=== PATIENT | female | born 1945 | race Caucasian/White ===

== ENCOUNTER 2016-09-14 20:37 | Emergency (ER) | payer MEDICARE, MEDICAID ==
[2016-09-14] MEDS ORDERED: IPRATROPIUM/ALBUTEROL 0.5-2.5 MG/3 ML AMPUL NEB ONE (20:41)
[2016-09-14] MEDS ORDERED: METHYLPREDNISOLONE INJ 125 MG/2 ML SDV IV ONE (20:41)
[2016-09-14] MEDS ORDERED: ALBUTEROL SULFATE 0.083% NEB 2.5 MG/3 ML AMPUL NEB SCH (20:56)
--- NOTE | 2016-09-14 20:59 | ER Document Report ---
ED Respiratory Problem - General Chief Complaint: Breathing Difficulty Stated Complaint: SHORTNESS OF BREATH Time Seen by Provider: 09/14/16 20:57 Mode of Arrival: Ambulatory Information source: Patient Notes: 71 yo copd female from [place] is c/o shortness of breath with increased cough and mucous. Usual oxygen 3 lpm NC, sent from the residential. - Related Data Allergies/Adverse Reactions: Penicillins Allergy (Verified 09/14/16 21:23) Past Medical History - General Information source: Patient - Social History Smoking Status: Former Smoker Frequency of alcohol use: None Drug Abuse: None Lives with: [facility] Family History: None Pulmonary Medical History: Reports: Hx COPD, Hx Pneumonia Endocrine Medical History: Denies: Hx Diabetes Mellitus Type 1, Hx Diabetes Mellitus Type 2 Surgical Hx: Negative Review of Systems - Review of Systems Constitutional: No symptoms reported EENT: See HPI Cardiovascular: No symptoms reported Respiratory: See HPI Gastrointestinal: No symptoms reported Genitourinary: No symptoms reported Female Genitourinary: No symptoms reported Musculoskeletal: No symptoms reported Skin: No symptoms reported Hematologic/Lymphatic: No symptoms reported Neurological/Psychological: No symptoms reported Physical Exam - Vital signs Vitals: Temp Pulse Resp BP Pulse Ox 98.4 F 101 H 20 106/62 96 09/14/16 20:43 09/14/16 20:43 09/14/16 20:43 09/14/16 20:43 09/14/16 20:43 Interpretation: Normal - General General appearance: Appears well, Alert - HEENT Head: Normocephalic, Atraumatic Eyes: Normal Conjunctiva: Normal Pupils: PERRL Tympanic membrane: Normal Mouth/Lips: Normal Mucous membranes: Normal Pharynx: Normal Neck: Supple. No: Lymphadenopathy - Respiratory Respiratory status: No respiratory distress Chest status: Nontender Breath sounds: Normal, Rhonchi - course upper bronchaial. No: Rales, Wheezing Chest palpation: Normal - Cardiovascular Rhythm: Regular Heart sounds: Normal auscultation Murmur: No - Abdominal Inspection: Normal Distension: No distension Bowel sounds: Normal Tenderness: Nontender. No: Tender Organomegaly: No organomegaly - Back Back: Normal, Nontender. No: Tender - Extremities General upper extremity: Normal inspection, Nontender, Normal color, Normal ROM , Normal temperature General lower extremity: Normal inspection, Nontender, Normal color, Normal ROM , Normal temperature, Normal weight bearing. No: Catina's sign - Neurological Neuro grossly intact: Yes Cognition: Normal Orientation: AAOx4 [place] Coma Scale Eye Opening: Spontaneous [place] Coma Scale Verbal: Oriented Juan David Coma Scale Motor: Obeys Commands [place] Coma Scale Total: 15 Speech: Normal Motor strength normal: LUE, RUE, LLE, RLE Sensory: Normal - Psychological Associated symptoms: Normal affect, Normal mood - Skin Skin Temperature: Warm Skin Moisture: Dry Skin Color: Normal Skin irregularity: negative: Rash Course - Re-evaluation Re-evalutation: 09/15/16 00:[address] palomino since pt feels better, she can return to [facility], start on azithromycin, Pt does feel better, vitals are stable. pulse ox 95-96 on her normal 3lpm NC. EKG evaluated by dr. palomino and dr. torres, DT with some PAC no ekg to compare it to 09/15/16 00:44 - Vital Signs Vital signs: Temp Pulse Resp BP Pulse Ox 98.4 F 101 H 19 125/66 93 09/14/16 20:43 09/14/16 20:43 09/15/16 01:01 09/15/16 01:00 09/15/16 01:01 - Laboratory Result Diagrams: 09/14/16 20:55 09/14/16 20:55 Laboratory results interpreted by me: 09/14/16 09/14/16 09/14/16 20:55 20:55 22:36 WBC 13.1 H Hgb 10.7 L Hct 33.8 L MCHC 31.7 L RDW 18.8 H Metamyelocytes % 1 H Absolute Eos (Manual) 0.7 H Sodium 136.8 L Potassium 5.3 H Chloride 97 L BUN 36 H Est GFR (Non-Af Amer) 55 L Glucose 115 H Ur Leukocyte Esterase TRACE H Discharge - Discharge Clinical Impression: COPD (chronic obstructive pulmonary disease) with acute bronchitis Condition: Good Disposition: HOME, SELF-CARE Instructions: Azithromycin ([facility]), Inhaled Bronchodilators ([facility]), Steroid Medication, Chronic Obstructive Lung Disease ([facility]), Bronchitis With Bronchospasm (Wheezing) ([facility]) Additional Instructions: to er if worse return to [facility] use inhaled bronchodilators to help get rid of the mucous drink plenty of fluids Prescriptions: Albuterol Sulfate [Ventolin 0.083% Neb 2.5 mg/3 mL Ampul] 2.5 mg NEB Q3HP PRN # 25 vial PRN Reason: Albuterol Sulfate [Proair HFA Inhalation Aerosol 8.5 gm MDI] 2 puff IH Q3HP PRN #1 hfa.aer.ad PRN Reason: Azithromycin [Zithromax] 250 mg PO DAILY #4 tablet Nebulizer [Nebulizer Machine] 1 each MC ASDIR PRN #1 kit PRN Reason: Prednisone [Deltasone 20 mg Tablet] 60 mg PO DAILY #12 tablet Referrals: SURY CRUZ MD [Primary Care Provider] - Follow up tomorrow
--- NOTE | 2016-09-14 21:12 | EKG REPORT ---
SEVERITY:- ABNORMAL ECG - SINUS TACHYCARDIA MULTIPLE ATRIAL PREMATURE COMPLEXES FIRST DEGREE AV BLOCK CONSIDER RIGHT VENTRICULAR HYPERTROPHY INFERIOR INFARCT, AGE INDETERMINATE : Confirmed by: Leanne Wood 14-Sep-2016 21:11:34
[2016-09-14 21:15] LABS: HEMATOCRIT 33.8 % (36.0-47.0); HEMOGLOBIN 10.7 g/dL (12.0-15.5); HGB HCT DIFFERENCE -1.7; MEAN CORPUSCULAR HEMOGLOBIN 28.2 pg (27.0-33.4); MEAN CORPUSCULAR HGB CONC 31.7 g/dL (32.0-36.0); MEAN CORPUSCULAR VOLUME 89 fl (80-97); RED CELL DISTRIBUTION WIDTH 18.8 % (11.5-14.0); WHITE BLOOD COUNT 13.1 10^3/uL (4.0-10.5)
[2016-09-14] MEDS ORDERED: ALBUTEROL SULFATE 0.083% NEB 2.5 MG/3 ML AMPUL NEB ONE (21:24)
[2016-09-14 21:27] LABS: BAND NEUTROPHILS % (MANUAL) 4 % (3-5); BASOPHILS % (MANUAL) 1 % (0-2); EOSINOPHILS % (MANUAL) 5 % (0-6); LYMPHOCYTES % (MANUAL) 25 % (13-45); TOTAL CELLS COUNTED 100
[2016-09-14 21:29] LABS: ALANINE AMINOTRANSFERASE 19 U/L (9-52); ALBUMIN 3.6 g/dL (3.5-5.0); ALKALINE PHOSPHATASE 105 U/L (38-126); ANION GAP 11 (5-19); ASPARTATE AMINO TRANSFERASE 18 U/L (14-36); BILIRUBIN,DIRECT 0.3 mg/dL (0.0-0.4); BILIRUBIN,TOTAL 0.4 mg/dL (0.2-1.3); BLOOD UREA NITROGEN 36 mg/dL (7-20); CALCIUM 9.3 mg/dL (8.4-10.2); CARBON DIOXIDE 29 mmol/L (22-30); CHLORIDE 97 mmol/L (98-107); CREATINE KINASE 34 U/L (30-135); CREATININE RESULT 0.99 mg/dL (0.52-1.25); GLUCOSE 115 mg/dL (75-110); POTASSIUM 5.3 mmol/L (3.6-5.0); SODIUM 136.8 mmol/L (137-145); TOTAL PROTEIN 6.8 g/dL (6.3-8.2)
[2016-09-14 21:31] LABS: ANISOCYTOSIS 2+; OVALOCYTES SLIGHT; PLATELET CLUMPS PRESENT; POIKILOCYTOSIS SLIGHT; POLYCHROMASIA SLIGHT; TARGET CELLS SLIGHT; TOXIC GRANULATION SLIGHT
[2016-09-14 21:35] LABS: CREATINE KINASE MB 2.11 ng/mL (<4.55); TROPONIN I < 0.012 ng/mL
--- NOTE | 2016-09-14 21:39 | RADIOLOGY REPORT (SQ) ---
EXAM DESCRIPTION: CHEST SINGLE VIEW COMPLETED DATE/TIME: 09/14/2016 9:09 pm REASON FOR STUDY: sob COMPARISON: None. EXAM PARAMETERS: NUMBER OF VIEWS: One view. TECHNIQUE: Single frontal radiographic view of the chest acquired. RADIATION DOSE: NA LIMITATIONS: None. FINDINGS: LUNGS AND PLEURA: No opacities, masses or pneumothorax. No pleural effusion. Chronic appe aring changes are identified. MEDIASTINUM AND HILAR STRUCTURES: No masses. Contour normal. HEART AND VASCULAR STRUCTURES: Heart normal in size. Normal vasculature. BONES: No acute findings. HARDWARE: Surgical clips are identified projected over both kamron thoraces. OTHER: No other significant finding. IMPRESSION: NO ACUTE RADIOGRAPHIC FINDING IN THE CHEST. TECHNICAL DOCUMENTATION: JOB ID: [id number]
[2016-09-14 22:57] LABS: APPEARANCE,URINE CLEAR; BILIRUBIN,URINE NEGATIVE (NEGATIVE); GLUCOSE, URINE NEGATIVE (NEGATIVE); KETONES,URINE NEGATIVE (NEGATIVE); LEUKOCYTE ESTERASE,URINE TRACE (NEGATIVE); NITRITE,URINE NEGATIVE (NEGATIVE); PROTEIN,URINE NEGATIVE (NEGATIVE); URINE SPECIFIC GRAVITY 1.004; UROBILINOGEN,URINE NEGATIVE mg/dL (<2.0)
[2016-09-14] MEDS ORDERED: OXYCODONE-ACETAMINOPHEN 5-325 MG TABLET PO ONE (23:15)
[2016-09-15] MEDS ORDERED: AZITHROMYCIN 250 MG TABLET PO ONE (00:38)
[2016-09-15 01:41] VITALS: BP 125/66
== END 2016-09-15 01:30 | disposition home or self-care (01) ==
LOC: ER 20:37
DX: J44.0 Chronic obstructive pulmonary disease with (acute) lower respiratory infection (principal); J20.9 Acute bronchitis, unspecified; I49.1 Atrial premature depolarization; R06.02 Shortness of breath; R05 Cough; Z88.0 Allergy status to penicillin; Z99.81 Dependence on supplemental oxygen
CPT/HCPCS: 93005; 94640 ×2; 99285; 51701; 96374; 36415; 87070; 87205; 82553; 82550; 85025; 87077; 80053; 81001; 84484; 87186; 83880; 71010; 93010; A9270 ×4; J2930; J7620

== ENCOUNTER 2016-09-25 16:50 | Inpatient (IN) | payer MEDICARE, MEDICAID ==
[2016-09-25] MEDS ORDERED: ONDANSETRON HCL INJ/PF 4 MG/2 ML SDV IV ONE (17:42)
[2016-09-25] MEDS ORDERED: MORPHINE SULFATE 10 MG/ML INJ IV ONE ×2 (17:42→20:49)
[2016-09-25 17:49] LABS: PROTHROMBIN TIME 13.3 SEC (11.4-15.4)
--- NOTE | 2016-09-25 17:51 | ER Document Report ---
ED General - General Chief Complaint: Headache Stated Complaint: HEADACHE Time Seen by Provider: 09/25/16 17:31 Mode of Arrival: Ambulatory Information source: Patient Notes: 71-year-old female with a history of cancer, COPD, sepsis and chronic kidney disease. Patient presented to the ER 2 days ago with productive cough this of breath. The patient was noted to have a mildly elevated WBC at that time. Patient presents today with a headache and back pain. Denies any abdominal pain. She has a continued cough. She states she always has back pain. Patient reports having a PET scan last month which showed no spread of the cancer. - HPI Onset: Just prior to arrival Onset/Duration: Gradual Quality of pain: Dull Severity: Moderate Pain Level: 2 Associated symptoms: Productive cough, Shortness of breath - Shortness of breath chronic. denies: Chills, Fever Exacerbated by: Movement Relieved by: Denies Similar symptoms previously: Yes Recently seen / treated by doctor: Yes - Related Data Allergies/Adverse Reactions: Penicillins Allergy (Verified 09/14/16 21:23) Past Medical History - General Information source: Patient - Social History Smoking Status: Former Smoker Cigarette use (# per day): No Chew tobacco use (# tins/day): No Frequency of alcohol use: None Drug Abuse: None Lives with: [facility]illed [facility] Family History: None Patient has suicidal ideation: No Patient has homicidal ideation: No - Past Medical History Cardiac Medical History: Reports: Hx Hypertension Pulmonary Medical History: Reports: Hx COPD, Hx Pneumonia, Other - Cancer Neurological Medical History: Reports: None Endocrine Medical History: Denies: Hx Diabetes Mellitus Type 1, Hx Diabetes Mellitus Type 2 Renal/ Medical History: Reports: None Malignancy Medical History: Reports: None GI Medical History: Reports: Hx Gastroesophageal Reflux Disease Musculoskeltal Medical History: Reports None Skin Medical History: Reports None Psychiatric Medical History: Reports: None Traumatic Medical History: Reports: None Infectious Medical History: Reports: None Surgical Hx: Other - Tributary Review of Systems - Review of Systems Constitutional: denies: Chills, Fever EENT: No symptoms reported Cardiovascular: No symptoms reported Respiratory: Cough Gastrointestinal: No symptoms reported Genitourinary: No symptoms reported Female Genitourinary: No symptoms reported Musculoskeletal: No symptoms reported Skin: No symptoms reported Hematologic/Lymphatic: No symptoms reported Neurological/Psychological: See HPI Physical Exam - Vital signs Vitals: Temp Pulse BP Pulse Ox 97.3 F 82 105/56 L 92 09/25/16 17:04 09/25/16 17:04 09/25/16 17:04 09/25/16 17:04 Notes: Physical exam: GENERAL: 1-year-old female, alert and oriented 3, complains of back pain and headache HEAD: Atraumatic, normocephalic. EYES: Pupils equal round and reactive to light, extraocular movements intact, sclera anicteric, conjunctiva are normal. ENT: oropharynx clear without exudates. Moist mucous membranes. NECK: Normal range of motion, supple LUNGS: rhonchi With wheezes HEART: Regular rate and rhythm without murmurs, rubs or gallops. ABDOMEN: Soft, normoactive bowel sounds. No tenderness to palpation. No guarding, no rebound. No masses appreciated. EXTREMITIES: Normal range of motion, no pitting or edema. No clubbing or cyanosis. NEUROLOGICAL: Cranial nerves II through XII grossly intact. Normal speech, does complain of a headache. She does not have any photophobia. As mentioned above, her neck is supple PSYCH: Normal mood, normal affect. SKIN: Warm, Dry, normal turgor, no rashes or lesions noted. Course - Re-evaluation Re-evalutation: 09/25/16 23:17 Patient was noted to have a significant leukocytosis with a left shift. It is not clear from the primary records if she still on steroids. The urine analysis showed pyuria, hematuria and bacteriuria. Chest x-ray showed no obvious infiltrate. Patient did have an MRI of the brain (which is the reason she was sent in for) which showed no bleed or mass-effect. Patient does have an increased BUN and creatinine suggestive of acute kidney injury and her blood pressure has been labile. Her lactic acid is normal. Discussed the case with Dr. Holley. Given the leukocytosis and the complaints of headache, I did attempt a spinal tap but was unsuccessful in obtaining spinal fluid. Will be to continue the IV fluids, add IV steroids (stress dose), IV antibiotics and closely. She has gotten meningitic doses of antibiotics at this point. If the headache continues, fluoroscopic LP could be considered tomorrow when radiology is available. - Vital Signs Vital signs: Temp Pulse Resp BP Pulse Ox 97.3 F 82 11 L 80/53 L 98 09/25/16 17:04 09/25/16 17:04 09/25/16 22:15 09/25/16 22:15 09/25/16 22:15 - Laboratory Result Diagrams: 09/25/16 17:29 09/25/16 17:29 Laboratory results interpreted by me: 09/25/16 09/25/16 09/25/16 17:29 17:29 19:30 WBC 19.5 H RBC 3.59 L Hgb 10.3 L Hct 32.0 L RDW 17.9 H Absolute Neutrophils 13.5 H Absolute Monocytes 2.2 H Potassium 5.4 H BUN 47 H Creatinine 1.26 H Est GFR ( Amer) 50 L Est GFR (Non-Af Amer) 42 L AST 56 H Albumin 3.3 L Urine Protein 100 H Urine Blood SMALL H Urine Nitrite POSITIVE H Ur Leukocyte Esterase LARGE H - Diagnostic Test Radiology reviewed: Image reviewed, Reports reviewed - MRI of the brain shows no mass-effect Critical Care Note - Critical Care Note Total time excluding time spent on procedures (mins): 90 Discharge - Discharge Clinical Impression: UTI, Sirs, Acute Kidney injury Condition: Serious Disposition: ADMITTED INPATIENT Admitting Provider: Estelle Holley is covering Unit Admitted: [facility]
[2016-09-25 17:53] LABS: ABSOLUTE BASOPHILS # (AUTO) 0.2 10^3/uL (0.0-0.2); ABSOLUTE EOSINOPHILS # (AUTO) 0.1 10^3/uL (0.0-0.6); ABSOLUTE LYMPHOCYTES (AUTO) 3.4 10^3/uL (0.5-4.7); ABSOLUTE MONOCYTES (AUTO) 2.2 10^3/uL (0.1-1.4); ABSOLUTE NEUT (AUTO) 13.5 10^3/uL (1.7-8.2); BASOPHILS % (AUTO) 1.3 % (0-2); EOSINOPHILS % (AUTO) 0.7 % (0-6); HEMOGLOBIN 10.3 g/dL (12.0-15.5); HGB HCT DIFFERENCE -1.1; LYMPHOCYTES % (AUTO) 17.4 % (13-45); MEAN CORPUSCULAR HEMOGLOBIN 28.6 pg (27.0-33.4); MEAN CORPUSCULAR HGB CONC 32.1 g/dL (32.0-36.0); MEAN CORPUSCULAR VOLUME 89 fl (80-97); MONOCYTES % (AUTO) 11.4 % (3-13); RED BLOOD COUNT 3.59 10^6/uL (3.72-5.28); RED CELL DISTRIBUTION WIDTH 17.9 % (11.5-14.0); SEGMENTED NEUTROPHILS % (AUTO) 69.2 % (42-78); WHITE BLOOD COUNT 19.5 10^3/uL (4.0-10.5)
[2016-09-25 18:02] LABS: ALANINE AMINOTRANSFERASE 33 U/L (9-52); ALBUMIN 3.3 g/dL (3.5-5.0); ALKALINE PHOSPHATASE 109 U/L (38-126); ANION GAP 8 (5-19); ASPARTATE AMINO TRANSFERASE 56 U/L (14-36); BILIRUBIN,DIRECT 0.4 mg/dL (0.0-0.4); BILIRUBIN,TOTAL 0.4 mg/dL (0.2-1.3); BLOOD UREA NITROGEN 47 mg/dL (7-20); CARBON DIOXIDE 28 mmol/L (22-30); CHLORIDE 103 mmol/L (98-107); CREATININE RESULT 1.26 mg/dL (0.52-1.25); GLUCOSE 81 mg/dL (75-110); POTASSIUM 5.4 mmol/L (3.6-5.0); TOTAL PROTEIN 6.5 g/dL (6.3-8.2)
--- NOTE | 2016-09-25 18:21 | RADIOLOGY REPORT (SQ) ---
EXAM DESCRIPTION: CT HEAD WITHOUT COMPLETED DATE/TIME: 09/25/2016 6:01 pm REASON FOR STUDY: headache, lung cancer COMPARISON: None. TECHNIQUE: Axial images acquired through the brain without intravenous contrast. Images reviewed wi th bone, brain and subdural windows. Images stored on PACS. All CT scanners at this facility use dose modulation, iterative reconstruction, and/or weight based d osing when appropriate to reduce radiation dose to as low as reasonably achievable (ALARA). [facility]: Dose Right [facility]: CareDose [facility]: Dose Right [facility]: Teradose 4D [facility]: Smove RADIATION DOSE: 131.66 mGy. LIMITATIONS: None. FINDINGS: VENTRICLES: Prominent. CEREBRUM: No masses. No hemorrhage. No midline shift. Areas of low density in the white matter mos t likely due to chronic micro-vascular ischemic change. No evidence for acute infarction. CEREBELLUM: No masses. No hemorrhage. No alteration of density. No evidence for acute infarction. EXTRAAXIAL SPACES: Mild age-related involutional change. No fluid collections. No masses. ORBITS AND GLOBE: No intra- or extraconal masses. Normal contour of globe without masses. CALVARIUM: No fracture. PARANASAL SINUSES: No fluid or mucosal thickening. SOFT TISSUES: No mass or hematoma. OTHER: No other significant finding. IMPRESSION: MILD CHRONIC CHANGES OF ATROPHY AND MICROVASCULAR ISCHEMIA. NO ACUTE PROCESS. TECHNICAL DOCUMENTATION: JOB ID: [id number] Quality ID # [id number]: Final reports with documentation of one or more dose reduction techniques (e.g., Au tomated exposure control, adjustment of the mA and/or kV according to patient size, use of iterative reconstruction technique) 2010 [employer]- All Rights Reserved
[2016-09-25] MEDS ORDERED: MORPHINE SULFATE 10 MG/ML INJ ONE (18:32)
--- NOTE | 2016-09-25 19:11 | RADIOLOGY REPORT (SQ) ---
EXAM DESCRIPTION: CHEST SINGLE VIEW COMPLETED DATE/TIME: 09/25/2016 6:54 pm REASON FOR STUDY: cough COMPARISON: 09/14/2016 EXAM PARAMETERS: NUMBER OF VIEWS: One view. TECHNIQUE: Single frontal radiographic view of the chest acquired. RADIATION DOSE: NA LIMITATIONS: None. FINDINGS: LUNGS AND PLEURA: No acute opacities, masses or pneumothorax. No pleural effusion. MEDIASTINUM AND HILAR STRUCTURES: Stable. HEART AND VASCULAR STRUCTURES: Stable. BONES: No acute findings. HARDWARE: Bilateral surgical clips. Prior kyphoplasty. OTHER: No other significant finding. IMPRESSION: NO ACUTE RADIOGRAPHIC FINDING IN THE CHEST. TECHNICAL DOCUMENTATION: JOB ID: [id number]
[2016-09-25] MEDS ORDERED: NORMAL SALINE 500 ML IV PRN ×2 (19:43→22:25)
[2016-09-25 19:55] LABS: APPEARANCE,URINE CLOUDY; BILIRUBIN,URINE NEGATIVE (NEGATIVE); GLUCOSE, URINE NEGATIVE (NEGATIVE); KETONES,URINE NEGATIVE (NEGATIVE); LEUKOCYTE ESTERASE,URINE LARGE (NEGATIVE); NITRITE,URINE POSITIVE (NEGATIVE); PROTEIN,URINE 100 mg/dL (NEGATIVE); URINE SPECIFIC GRAVITY 1.009; UROBILINOGEN,URINE NEGATIVE mg/dL (<2.0)
[2016-09-25] MEDS ORDERED: CEFTRIAXONE 2 GM/D5W RTU 50 ML IV ONE (20:39)
--- NOTE | 2016-09-25 21:57 | RADIOLOGY REPORT (SQ) ---
EXAM DESCRIPTION: MRI HEAD COMBO COMPLETED DATE/TIME: 09/25/2016 9:42 pm REASON FOR STUDY: headache COMPARISON: None. TECHNIQUE: Multiplanar imaging includes non-contrasted T1, T2, FLAIR, and Diffusion with ADC map seq uences. Images stored on PACS. LIMITATIONS: None. FINDINGS: ANATOMY: No anomalies. Normal vascular flow voids. Pituitary fossa normal. CSF SPACES: Normal in size and contour. No hemorrhage. CEREBRUM: Scattered high-signal intensity lesions scattered throughout the white matter on FLAIR imag ing with distribution suggesting chronic micro-vascular ischemic change. Sulci and gyri normal in si ze and contour. No evidence of hemorrhage, mass or extraaxial fluid collection. POSTERIOR FOSSA: No signal alteration. No hemorrhage. No edema, masses or mass effect. Internal cary tory canals, cerebello-pontine angles, mastoids normal. DIFFUSION: Negative for acute or sub-acute infarction. ORBITS: No masses. Globes normal. PARANASAL SINUSES: No fluid levels. Mucosa normal. OTHER: No other significant finding. IMPRESSION: Negative for acute or sub-acute infarction.Age-related MICROVASCULAR ISCHEMIC CHANGE. TECHNICAL DOCUMENTATION: JOB ID: [id number]- All Rights Reserved
[2016-09-25] MEDS ORDERED: LIDOCAINE 1% INJ-PF (10 MG/ML) 30 ML SDV INJ ONE (22:26)
[2016-09-25] MEDS ORDERED: VANCOMYCIN HCL INJ 1000 MG VIAL IV ONE (23:02)
[2016-09-25] MEDS ORDERED: NORMAL SALINE 1000 ML 1,000 ML IV PRN ×2 (23:10→23:13)
[2016-09-25] MEDS ORDERED: ACETAMINOPHEN 325 MG TABLET PO PRN (23:13)
[2016-09-25] MEDS ORDERED: ONDANSETRON HCL INJ/PF 4 MG/2 ML SDV IV PRN (23:13)
[2016-09-25] MEDS ORDERED: METHYLPREDNISOLONE INJ 40 MG/1 ML SDV IV ONE (23:26)
[2016-09-25] MEDS ORDERED: VANCOMYCIN HCL 0 MG in DEXTROSE 5%-WATER 250 ML IV NR (23:30)
[2016-09-25] MEDS ORDERED: IPRATROPIUM/ALBUTEROL 0.5-2.5 MG/3 ML AMPUL NEB ONE (23:45)
[2016-09-25] MEDS ORDERED: LEVOFLOXACIN 500 MG/D5W RTU 100 ML IV SCH (23:45)
[2016-09-26] MEDS ORDERED: LEVOFLOXACIN 500 MG/D5W RTU 500 MG/100 ML RTUPB IV ONE
[2016-09-26] MEDS: IPRATROPIUM/ALBUTEROL 0.5-2.5 MG/3 ML AMPUL NEB SCH ×4 (02:01→20:39)
[2016-09-26 07:06] LABS: ABSOLUTE BASOPHILS # (AUTO) 0.1 10^3/uL (0.0-0.2); ABSOLUTE LYMPHOCYTES (AUTO) 0.8 10^3/uL (0.5-4.7); ABSOLUTE MONOCYTES (AUTO) 0.1 10^3/uL (0.1-1.4); ABSOLUTE NEUT (AUTO) 15.5 10^3/uL (1.7-8.2); BASOPHILS % (AUTO) 0.6 % (0-2); EOSINOPHILS % (AUTO) 0.2 % (0-6); HEMATOCRIT 33.5 % (36.0-47.0); HEMOGLOBIN 10.5 g/dL (12.0-15.5); LYMPHOCYTES % (AUTO) 5.1 % (13-45); MEAN CORPUSCULAR HEMOGLOBIN 28.3 pg (27.0-33.4); MEAN CORPUSCULAR HGB CONC 31.4 g/dL (32.0-36.0); MEAN CORPUSCULAR VOLUME 90 fl (80-97); MONOCYTES % (AUTO) 0.8 % (3-13); RED CELL DISTRIBUTION WIDTH 17.7 % (11.5-14.0); SEGMENTED NEUTROPHILS % (AUTO) 93.3 % (42-78); WHITE BLOOD COUNT 16.6 10^3/uL (4.0-10.5)
[2016-09-26 07:19] LABS: ALANINE AMINOTRANSFERASE 24 U/L (9-52); ALBUMIN 3.4 g/dL (3.5-5.0); ALKALINE PHOSPHATASE 100 U/L (38-126); ANION GAP 8 (5-19); ASPARTATE AMINO TRANSFERASE 56 U/L (14-36); BILIRUBIN,DIRECT 0.4 mg/dL (0.0-0.4); BILIRUBIN,TOTAL 0.4 mg/dL (0.2-1.3); BLOOD UREA NITROGEN 42 mg/dL (7-20); CALCIUM 8.7 mg/dL (8.4-10.2); CARBON DIOXIDE 25 mmol/L (22-30); CHLORIDE 105 mmol/L (98-107); CREATININE RESULT 1.22 mg/dL (0.52-1.25); GLUCOSE 130 mg/dL (75-110); SODIUM 138.2 mmol/L (137-145); TOTAL PROTEIN 7.1 g/dL (6.3-8.2)
[2016-09-26 07:25] LABS: POTASSIUM 6.3 mmol/L (3.6-5.0)
[2016-09-26] MEDS ORDERED: (PENDING PHARMACY ID) (Oxycodone Hcl/Acetaminophen [Percocet 10-325 Mg Tablet] 1 TAB) PO PRN (08:33)
[2016-09-26] MEDS ORDERED: SODIUM POLYSTYRENE SULFONATE 15 GM/60 ML ONE (08:43)
[2016-09-26] MEDS ORDERED: SODIUM POLYSTYRENE SULFONATE 15 GM/60 ML PO ONE (08:45)
[2016-09-26] MEDS ORDERED: CLONAZEPAM PO SCH (08:45)
[2016-09-26] MEDS ORDERED: CALCIUM GLUCONATE 1000 MG/10 ML INJ IV ONE (08:45)
[2016-09-26] MEDS ORDERED: PREGABALIN 75 MG CAPSULE PO SCH (08:45)
--- NOTE | 2016-09-26 08:56 | PDOC H&P ---
History of Present Illness Admission Date/PCP: 09/25/16 23:14 SURY CRUZ MD Patient complains of: Headache History of Present Illness: GEREMIAS LOPEZ is a 71 year old female This is a 71-year-old female with a history of the COPD lung cancer sepsis and chronic kidney disease present in the emergency department 2 days ago with a productive cough and shortness of the breath patient at that time was noticed some elevated WBC. Patient's present today with the headache and the back pain mostly on the thoracic spine denied any fever denied any blurry vision. Patient initial workup including the CT of the head and MRI of the head was negative for any acute finding. Patient does not have a normal fever but patient's white count was elevated but patients currently on the steroid. Patient no ongoing chronic COPD for several hospital admissions. The ER physicians tried to get the lumbar puncture which is very low suspicious for the any meningitis with the clinical pictures but unable to get it because of a lot of arthritis. Patients color with the Rocephin vancomycin and Levaquin antibiotic when I saw the patient's Patient is alert awake oriented 3. Patient's denied any headache but mostly complains of back pain which is described in the cervical spine and thoracic spine area. Patients denied any chest pain patient still complains of shortness of the breath on and off Patients recently admitting in the hospital on 08/16/16 for the pneumonia and septicemia and patient's was treated with the IV antibiotic Levaquin and vancomycin at the time. Patient's also see in [place] and the recently asked to do a PET scan done according think and was stable Patient's blood pressure was running low but other than that patients denied any other symptoms remain complaining of thoracic spine pain Past Medical History Cardiac Medical History: Reports: Hypertension Pulmonary Medical History: Reports: Bronchitis, Chronic Obstructive Pulmonary Disease (COPD), Pneumonia, Respiratory Failure, Other - Cancer Neurological Medical History: Reports: None Endocrine Medical History: Denies: Diabetes Mellitus Type 1, Diabetes Mellitus Type 2 Renal/ Medical History: Reports: None, Chronic Kidney Disease Malignancy Medical History: Reports: None, Lung Cancer GI Medical History: Reports: Gastroesophageal Reflux Disease Musculoskeltal Medical History: Reports: Arthritis Skin Medical History: Reports: None Psychiatric Medical History: Reports: None, Depression Traumatic Medical History: Reports: None Infectious Medical History: Reports: None Past Surgical History Past Surgical History: Reports: Appendectomy, Cholecystectomy, Hysterectomy, Orthopedic Surgery Social History Lives with: Prison Smoking Status: Former Smoker Frequency of Alcohol Use: None Hx Recreational Drug Use: No Hx Prescription Drug Abuse: No - Advance Directive Resuscitation Status: Full Code Family History Family History: None, Reviewed & Not Pertinent, Arthritis Parental Family History Reviewed: Yes Children Family History Reviewed: Yes Sibling(s) Family History Reviewed.: Yes Medication/Allergy Home Medications: Nebulizer [Nebulizer Machine] 1 each MC ASDIR PRN #1 kit 09/15/16 Albuterol Sulfate [Ventolin Hfa] 2 puff IH Q4HP PRN 09/26/16 Amlodipine Besylate [Norvasc 5 mg Tablet] 1 tab PO DAILY 09/26/16 Atorvastatin Calcium [Lipitor 10 mg Tablet] 1 tab PO QHS 09/26/16 Budesonide/Formoterol Fumarate [Symbicort HFA 160-4.5 mcg Inhaler 6 gm] 2 puff IH Q12H 09/26/16 Citalopram Hydrobromide [Celexa 20 mg Tablet] 1 tab PO DAILY 09/26/16 Clonazepam [Klonopin] 1 tab PO Q12H 09/26/16 Clonidine HCl 1 tab PO Q12H 09/26/16 Ergocalciferol (Vitamin D2) [Vitamin D2] 1 tab PO Q14D 09/26/16 Levocetirizine Dihydrochloride [Xyzal] 1 tab PO QHS 09/26/16 Losartan Potassium [Cozaar 100 mg Tablet] 1 tab PO DAILY 09/26/16 Mirtazapine [Remeron] 7.5 mg PO QHS 09/26/16 Omeprazole 1 tab PO DAILY 09/26/16 Oxycodone HCl/Acetaminophen [Percocet 10-325 mg Tablet] 1 tab PO Q6HP PRN Pregabalin [Lyrica 75 mg Capsule] 1 cap PO Q8H 09/26/16 Tiotropium [place] [Spiriva Handihaler 5 Cap/Kit (18 Mcg/Cap)] 1 cap IH DAILY Allergies/Adverse Reactions: Penicillins Allergy (Verified 09/14/16 21:23) Review of Systems Constitutional: PRESENT: headache(s). ABSENT: chills, fever(s), weight gain, weight loss Eyes: ABSENT: visual disturbances Ears: ABSENT: hearing changes Nose, Mouth, and Throat: PRESENT: headache(s) Cardiovascular: ABSENT: chest pain, dyspnea on exertion, edema, orthropnea, palpitations Respiratory: PRESENT: cough, dyspnea. ABSENT: hemoptysis Gastrointestinal: ABSENT: abdominal pain, constipation, diarrhea, hematemesis, hematochezia, nausea, vomiting Genitourinary: ABSENT: dysuria, hematuria Musculoskeletal: PRESENT: back pain. ABSENT: joint swelling Integumentary: ABSENT: rash, wounds Neurological: ABSENT: abnormal gait, abnormal speech, confusion, dizziness, focal weakness, syncope Psychiatric: ABSENT: anxiety, depression, homidical ideation, suicidal ideation Endocrine: ABSENT: cold intolerance, heat intolerance, menstrual abnormalities, polydipsia, polyuria Hematologic/Lymphatic: ABSENT: easy bleeding, easy bruising, lymphadenopathy Physical Exam Vital Signs: Temp Pulse Resp BP Pulse Ox 97.8 F 82 18 107/61 100 09/26/16 08:03 09/26/16 08:03 09/26/16 08:03 09/26/16 08:03 09/26/16 08:03 Intake & Output 09/25/16 09/26/16 09/27/16 06:59 06:59 06:59 Intake Total 1546 Output Total 400 Balance 1146 Weight 69.3 kg General appearance: PRESENT: no acute distress, well-developed, well-nourished Head exam: PRESENT: atraumatic, normocephalic Eye exam: PRESENT: conjunctiva pink, EOMI, PERRLA. ABSENT: scleral icterus Ear exam: PRESENT: normal external ear exam Mouth exam: PRESENT: moist, tongue midline Neck exam: PRESENT: full ROM. ABSENT: carotid bruit, JVD, lymphadenopathy, thyromegaly Respiratory exam: PRESENT: decreased breath sounds Cardiovascular exam: PRESENT: RRR. ABSENT: diastolic murmur, rubs, systolic murmur Pulses: PRESENT: normal dorsalis pedis pul, +2 pedal pulses bilateral Vascular exam: PRESENT: normal capillary refill GI/Abdominal exam: PRESENT: normal bowel sounds, soft. ABSENT: distended, guarding, mass, organolmegaly, rebound, tenderness Rectal exam: PRESENT: deferred Extremities exam: ABSENT: full ROM, left AKA, right AKA, left BKA, right BKA, calf tenderness, joint swelling, pedal edema, tenderness, other Musculoskeletal exam: PRESENT: ambulatory Neurological exam: PRESENT: alert, awake, oriented to person, oriented to place , oriented to time, oriented to situation, reflexes normal, CN II-XII grossly intact. ABSENT: motor sensory deficit Psychiatric exam: PRESENT: appropriate affect, normal mood. ABSENT: homicidal ideation, suicidal ideation Skin exam: PRESENT: dry, intact, warm. ABSENT: cyanosis, rash Results Laboratory Results: 09/26/16 06:50 09/26/16 06:50 09/26/16 09/26/16 09/26/16 06:50 06:50 06:50 WBC 16.6 H RBC 3.70 L Hgb 10.5 L Hct 33.5 L MCV 90 MCH 28.3 MCHC 31.4 L RDW 17.7 H Plt Count 189 Seg Neutrophils % 93.3 H Lymphocytes % 5.1 L Monocytes % 0.8 L Eosinophils % 0.2 Basophils % 0.6 Absolute Neutrophils 15.5 H Absolute Lymphocytes 0.8 Absolute Monocytes 0.1 Absolute Eosinophils 0.0 Absolute Basophils 0.1 Sodium 138.2 Potassium 6.3 H* Chloride 105 Carbon Dioxide 25 Anion Gap 8 BUN 42 H Creatinine 1.22 Est GFR ( Amer) 52 L Est GFR (Non-Af Amer) 43 L Glucose 130 H Calcium 8.7 Total Bilirubin 0.4 AST 56 H ALT 24 Alkaline Phosphatase 100 Ammonia < 8.7 L Total Protein 7.1 Albumin 3.4 L Impressions: Head CT 09/25/16 17:42 IMPRESSION: MILD CHRONIC CHANGES OF ATROPHY AND MICROVASCULAR ISCHEMIA. NO ACUTE PROCESS. Chest X-Ray 09/25/16 18:19 IMPRESSION: NO ACUTE RADIOGRAPHIC FINDING IN THE CHEST. Head MRI 09/25/16 19:44 IMPRESSION: Negative for acute or sub-acute infarction.Age-related MICROVASCULAR ISCHEMIC CHANGE. Assessment & Plan - Diagnosis (1) Sepsis Qualifiers: Sepsis type: sepsis due to unspecified organism Qualified Code(s): A41.9 - Sepsis, unspecified organism Is this a current diagnosis for this admission?: YesPlan: Most likely a possible underlying pneumonia with urinary tract infections. We will start the patient on a broad-spectrum antibiotic with the history of the MRSA in the past will continues with the vancomycin until the cultures back. Patient at this point no sign of any meningitis is very low suspicious and ER physicians tried to get the lumbar puncture but unable to get it. Patient does not have any fever but patients have a low blood pressures and with this elevated white count with a left shift will cover with all broad-spectrum antibiotic at this point (2) Shortness of breath Is this a current diagnosis for this admission?: YesPlan: With chronic COPD become continues to nebulizer treatments (3) Back pain Qualifiers: Back pain location: back pain in unspecified location Is this a current diagnosis for this admission?: YesPlan: We will get the CT of the C-spine and T-spine (4) Headache Qualifiers: Headache type: unspecified Is this a current diagnosis for this admission?: YesPlan: Patient CT head and MRI of the head is negative and clinical exams no other neurological signs and symptoms is not this most likely a musculoskeletal and tension type of the headache. (5) Pneumonia Qualifiers: Pneumonia type: due to unspecified organism Lung location: unspecified part of lung Is this a current diagnosis for this admission?: YesPlan: Continues to IV antibiotic (6) COPD (chronic obstructive pulmonary disease) Qualifiers: Chronic bronchitis type: unspecified Is this a current diagnosis for this admission?: YesPlan: Continues to current medications (7) Hypertension Qualifiers: Hypertension type: unspecified secondary hypertension Qualified Code (s): I15.9 - Secondary hypertension, unspecified; I15 - Secondary hypertension Is this a current diagnosis for this admission?: YesPlan: Currently running low possible underlying sepsis will hold all blood pressure medications (8) Lung cancer Qualifiers: Lung location: unspecified part of lung Is this a current diagnosis for this admission?: YesPlan: Currently stable (9) Acute renal failure Qualifiers: Acute renal failure type: unspecified Qualified Code(s): N17.9 - Acute kidney failure, unspecified Is this a current diagnosis for this admission?: YesPlan: Underlying chronic kidney disease will give her IV fluid and continues to monitor the patient's and cardiac the potassiums and check the magnesium also - Time Time Spent: 50 to 70 Minutes Medications reviewed and adjusted accordingly: Yes Anticipated discharge: SNF Within: Other - Inpatient Certification Medical Necessity: Need Close Monitoring Due to Risk of Patient Decompensation, Need For IV Fluids, Need for IV Antibiotics - Plan Summary Plan Summary: Patient is currently symptomatically stable will continues the broad-spectrum IV antibiotic and IV fluid and correct the potassiums. We will try to reach the daughter unable to reach it discussed with the nursing staff to try to reach again and will talk about the CODE STATUS of the patient's.
[2016-09-26] MEDS ORDERED: NORMAL SALINE 1000 ML 1,000 ML IV PRN (09:39)
[2016-09-26] MEDS: CITALOPRAM HYDROBROMIDE 20 MG TABLET PO SCH (09:43)
[2016-09-26] MEDS: FAMOTIDINE 20 MG TABLET PO SCH ×2 (09:44→22:18)
[2016-09-26] MEDS ORDERED: 1/2 NORMAL SALINE 1,000 ML IV PRN ×2 (09:54→19:57)
[2016-09-26] MEDS: BUDESONIDE/FORMOTEROL 160-4.5 MCG 60 PUFF/6 GM MDI IH SCH ×2 (09:56→22:22)
[2016-09-26] MEDS ORDERED: CITALOPRAM HYDROBROMIDE 20 MG TABLET PO SCH (10:00)
[2016-09-26] MEDS ORDERED: TIOTROPIUM BROMIDE DPI 5 CAP/KIT (18 MCG/CAP) IH SCH (10:00)
[2016-09-26] MEDS ORDERED: ENOXAPARIN SODIUM INJ 30 MG/0.3 ML DISP.SYRIN SUBCUT SCH (10:00)
[2016-09-26] MEDS ORDERED: CEFEPIME 1 GM/D5W RTU 50 ML IV SCH (10:00)
[2016-09-26] MEDS ORDERED: DOCUSATE SODIUM 100 MG CAPSULE PO ONE (10:00)
[2016-09-26] MEDS ORDERED: CEFEPIME 2 GM/D5W RTU 50 ML IV SCH (10:00)
[2016-09-26] MEDS ORDERED: (PENDING PHARMACY ID) (Omeprazole [Omeprazole] 1 TAB) PO SCH (10:00)
[2016-09-26] MEDS ORDERED: ENOXAPARIN SODIUM INJ 40 MG/0.4 ML DISP.SYRIN SUBCUT SCH (10:00)
[2016-09-26] MEDS ORDERED: CEFEPIME HCL 1 GM in DEXTROSE 5%-WATER 50 ML IV SCH (10:00)
--- NOTE | 2016-09-26 10:41 | RADIOLOGY REPORT (SQ) ---
EXAM DESCRIPTION: CT CERVICAL SPINE WITHOUT COMPLETED DATE/TIME: 09/26/2016 9:36 am REASON FOR STUDY: back pain COMPARISON: CT thoracic spine same date TECHNIQUE: Axial images acquired through the cervical spine without intravenous contrast. Images re viewed with lung, soft tissue and bone windows. Reconstructed coronal and sagittal MPR images review ed. Images stored on PACS. All CT scanners at this facility use dose modulation, iterative reconstruction, and/or weight based d osing when appropriate to reduce radiation dose to as low as reasonably achievable (ALARA). [facility]: Dose Right [facility]: CareDose [facility]: Dose Right [facility]: Teradose 4D [facility]: CleverAds RADIATION DOSE: 20.29 mGy. LIMITATIONS: None. FINDINGS: ALIGNMENT: Mild anterolisthesis of C3 over C4, and C4 over C5 related to facet arthropath y. Mild retrolisthesis of C5 over. MINERALIZATION: Osteopenic VERTEBRAL BODIES: No fractures or dislocation. DISCS: Craniocervical junction, C1-2, C2-3 are unremarkable. At C3-4, minimal posterior disc bulging is present without central stenosis. There is bulky facet an d uncovertebral hypertrophy causing moderate right and high-grade left foraminal narrowing. At C4-5, no significant posterior disc bulging or central stenosis is present. High-grade bilateral foraminal narrowing from facet and uncovertebral hypertrophy is present. At C5-6, mild retrolisthesis of C5 over C6, broad diffuse posterior disc bulge and bony spurring caus es mild central canal narrowing. High-grade bilateral foraminal narrowing right greater than left is present from facet and uncovertebral hypertrophy. At C6-7, mild to moderate posterior disc bulging is present causing borderline central canal narrowin g. High-grade bilateral foraminal stenosis is present from facet and uncovertebral hypertrophy. FACETS, LATERAL MASSES, POSTERIOR ELEMENTS: Multilevel significant facet arthropathy. HARDWARE: None in the spine. VISUALIZED RIBS: No fractures. LUNG APICES AND SOFT TISSUES: Heavily calcified bilateral carotid bifurcations OTHER: No other significant finding. IMPRESSION: Multilevel significant foraminal narrowing as above TECHNICAL DOCUMENTATION: JOB ID: [id number] Quality ID # [id number]: Final reports with documentation of one or more dose reduction techniques (e.g., Au tomated exposure control, adjustment of the mA and/or kV according to patient size, use of iterative reconstruction technique) 2010 [employer]- All Rights Reserved
--- NOTE | 2016-09-26 10:46 | RADIOLOGY REPORT (SQ) ---
EXAM DESCRIPTION: CT THORACIC SPINE WITHOUT COMPLETED DATE/TIME: 09/26/2016 9:36 am REASON FOR STUDY: back pain COMPARISON: Cervical spine CT same date TECHNIQUE: Axial images acquired through the thoracic spine without intravenous contrast. Images re viewed with lung, soft tissue and bone windows. Reconstructed coronal and sagittal MPR images review ed. Images stored on PACS. All CT scanners at this facility use dose modulation, iterative reconstruction, and/or weight based d osing when appropriate to reduce radiation dose to as low as reasonably achievable (ALARA). [facility]: Dose Right [facility]: CareDose [facility]: Dose Right [facility]: Teradose 4D [facility]: HOTELbeat RADIATION DOSE: 95.76 mGy. LIMITATIONS: None. FINDINGS: VISUALIZED LUNGS: Radiotherapy treatment markers in the right upper lobe. At the edge of the field of view, a left upper lobe 1.5 cm nodule with surrounding radiotherapy treatment markers is seen. SOFT TISSUES: No soft tissue swelling. No masses. VERTEBRAL BODIES: Diffuse osteoporosis. T1 through T5 have maintained vertebral body height. T6 has been treated with kyphoplasty with 50% compression. T7, T8, T9 and T12 of about 50% vertebral body compression, anterior osteophytes and mild posterior o steophyte formation at the disc levels suggesting that these may be chronic compression deformities. 25% upper endplate compression of T11 likely chronic with osteophyte formation Less than 25% upper endplate compression of L1 with anterior osteophytes, likely chronic. DISCS: No gross herniation causing central canal stenosis. There is mild retropulsion of the posteri or inferior corner of T7 causing mild central canal narrowing at T7-8 on axial image 70. ALIGNMENT: Normal. TRANSVERSE PROCESSES, POSTERIOR ELEMENTS: No fractures. No dislocation. No acute findings. HARDWARE: Kyphoplasty cement at T6 VISUALIZED RIBS: No fractures. OTHER: No other significant finding. IMPRESSION: Osteoporosis with multiple chronic appearing mid and lower thoracic compression deformit ies Radiotherapy treatment markers in the right upper lobe and left upper lobe with 1.5 cm left upper lob e nodule. TECHNICAL DOCUMENTATION: JOB ID: [id number] Quality ID # [id number]: Final reports with documentation of one or more dose reduction techniques (e.g., Au tomated exposure control, adjustment of the mA and/or kV according to patient size, use of iterative reconstruction technique) 2010 [employer]- All Rights Reserved
[2016-09-26] MEDS ORDERED: CLONAZEPAM 1 MG TABLET PO ONE (11:15)
[2016-09-26] MEDS ORDERED: LANSOPRAZOLE 30 MG TAB.RAP.DR PO ONE (11:15)
[2016-09-26] MEDS ORDERED: CETIRIZINE 5 MG TABLET PO ONE (12:00)
[2016-09-26 12:28] LABS: ANION GAP 12 (5-19); BLOOD UREA NITROGEN 37 mg/dL (7-20); CALCIUM 9.1 mg/dL (8.4-10.2); CARBON DIOXIDE 26 mmol/L (22-30); CHLORIDE 103 mmol/L (98-107); CREATININE RESULT 1.08 mg/dL (0.52-1.25); GLUCOSE 224 mg/dL (75-110); SODIUM 141.2 mmol/L (137-145)
[2016-09-26 12:39] LABS: POTASSIUM 5.1 mmol/L (3.6-5.0)
[2016-09-26] MEDS: PREGABALIN 75 MG CAPSULE PO SCH ×2 (14:26→22:18)
[2016-09-26] MEDS: LEVOFLOXACIN 250 MG/D5W RTU 250 MG/50 ML RTUPB IV SCH (17:29)
[2016-09-26] MEDS ORDERED: CEFTRIAXONE 2 GM/D5W RTU 2 GM/50 ML RTUPB IV SCH (18:00)
[2016-09-26] MEDS: OXYCODONE HCL IR 5 MG TABLET PO PRN (18:38)
[2016-09-26] MEDS: OXYCODONE-ACETAMINOPHEN 5-325 MG TABLET PO PRN (20:44)
[2016-09-26 20:48] LABS: ARTERIAL BLOOD BASE EXCESS 3.2 mmol/L
[2016-09-26] MEDS ORDERED: LEVOCETIRIZINE DIHYDROCHLORIDE PO SCH (22:00)
[2016-09-26] MEDS ORDERED: CEFTRIAXONE 2 GM/D5W RTU 2 GM/50 ML RTUPB IV ONE (22:00)
[2016-09-26] MEDS ORDERED: ATORVASTATIN CALCIUM 10 MG TABLET PO SCH (22:00)
[2016-09-26] MEDS: ATORVASTATIN CALCIUM 10 MG TABLET PO SCH (22:18)
[2016-09-26] MEDS: VANCOMYCIN HCL 1,000 MG in DEXTROSE 5%-WATER 250 ML IV SCH (22:18)
[2016-09-26] MEDS: CLONAZEPAM 1 MG TABLET PO SCH (22:18)
[2016-09-27] MEDS: IPRATROPIUM/ALBUTEROL 0.5-2.5 MG/3 ML AMPUL NEB SCH ×4 (02:31→19:45)
[2016-09-27 04:57] LABS: ABSOLUTE BASOPHILS # (AUTO) 0.4 10^3/uL (0.0-0.2); ABSOLUTE LYMPHOCYTES (AUTO) 2.1 10^3/uL (0.5-4.7); ABSOLUTE NEUT (AUTO) 15.3 10^3/uL (1.7-8.2); BASOPHILS % (AUTO) 2.2 % (0-2); EOSINOPHILS % (AUTO) 0.1 % (0-6); HEMATOCRIT 30.1 % (36.0-47.0); HEMOGLOBIN 9.7 g/dL (12.0-15.5); LYMPHOCYTES % (AUTO) 10.6 % (13-45); MEAN CORPUSCULAR HEMOGLOBIN 28.7 pg (27.0-33.4); MEAN CORPUSCULAR HGB CONC 32.3 g/dL (32.0-36.0); MEAN CORPUSCULAR VOLUME 89 fl (80-97); MONOCYTES % (AUTO) 9.9 % (3-13); RED BLOOD COUNT 3.38 10^6/uL (3.72-5.28); RED CELL DISTRIBUTION WIDTH 17.8 % (11.5-14.0); SEGMENTED NEUTROPHILS % (AUTO) 77.2 % (42-78); WHITE BLOOD COUNT 19.8 10^3/uL (4.0-10.5)
[2016-09-27] MEDS: OXYCODONE HCL IR 5 MG TABLET PO PRN ×2 (05:46→21:12)
[2016-09-27] MEDS: OXYCODONE-ACETAMINOPHEN 5-325 MG TABLET PO PRN ×3 (05:46→21:12)
[2016-09-27] MEDS: PREGABALIN 75 MG CAPSULE PO SCH ×3 (05:47→21:12)
[2016-09-27] MEDS ORDERED: LANSOPRAZOLE 30 MG TAB.RAP.DR PO SCH (08:00)
[2016-09-27] MEDS ORDERED: CLONAZEPAM 1 MG TABLET PO SCH (10:00)
[2016-09-27] MEDS: CLONAZEPAM 1 MG TABLET PO SCH ×2 (10:55→21:12)
[2016-09-27] MEDS: FAMOTIDINE 20 MG TABLET PO SCH ×2 (10:56→21:12)
[2016-09-27] MEDS: CITALOPRAM HYDROBROMIDE 20 MG TABLET PO SCH (10:56)
[2016-09-27] MEDS: CETIRIZINE 5 MG TABLET PO SCH (10:57)
[2016-09-27] MEDS: BUDESONIDE/FORMOTEROL 160-4.5 MCG 60 PUFF/6 GM MDI IH SCH ×2 (10:57→21:15)
--- NOTE | 2016-09-27 12:55 | EKG REPORT ---
SEVERITY:- ABNORMAL ECG - SINUS RHYTHM FIRST DEGREE AV BLOCK CONSIDER RIGHT VENTRICULAR HYPERTROPHY PROBABLE INFERIOR INFARCT, OLD : Confirmed by: Merna Schroeder MD 27-Sep-2016 12:54:54
--- NOTE | 2016-09-27 13:22 | PDOC PROGRESS REPORT ---
Subjective Progress Note for:: 09/27/16 Subjective:: pt is doing well back pain is stable no headache urine cuture shows gran neg Physical Exam Vital Signs: Temp Pulse Resp BP Pulse Ox 97.9 F 85 18 135/68 H 96 09/27/16 07:21 09/27/16 07:21 09/27/16 07:21 09/27/16 07:21 09/27/16 07:21 Intake & Output 09/26/16 09/27/16 09/28/16 06:59 06:59 06:59 Intake Total 1546 3345 Output Total 400 2535 Balance 1146 810 Weight 69.3 kg 61.9 kg General appearance: PRESENT: no acute distress, well-developed, well-nourished Head exam: PRESENT: atraumatic, normocephalic Eye exam: PRESENT: conjunctiva pink, EOMI, PERRLA. ABSENT: scleral icterus Ear exam: PRESENT: normal external ear exam Mouth exam: PRESENT: moist, tongue midline Neck exam: PRESENT: full ROM. ABSENT: carotid bruit, JVD, lymphadenopathy, thyromegaly Cardiovascular exam: PRESENT: RRR. ABSENT: diastolic murmur, rubs, systolic murmur Pulses: PRESENT: normal dorsalis pedis pul, +2 pedal pulses bilateral Vascular exam: PRESENT: normal capillary refill GI/Abdominal exam: PRESENT: normal bowel sounds, soft. ABSENT: distended, guarding, mass, organolmegaly, rebound, tenderness Rectal exam: PRESENT: deferred Neurological exam: PRESENT: alert, awake, oriented to person, oriented to place , oriented to time, oriented to situation, CN II-XII grossly intact. ABSENT: motor sensory deficit Psychiatric exam: PRESENT: appropriate affect, normal mood. ABSENT: homicidal ideation, suicidal ideation Skin exam: PRESENT: dry, intact, warm. ABSENT: cyanosis, rash Results Laboratory Results: 09/27/16 04:03 09/26/16 11:59 09/26/16 09/26/16 09/27/16 11:59 20:24 04:03 WBC 19.8 H RBC 3.38 L Hgb 9.7 L Hct 30.1 L MCV 89 MCH 28.7 MCHC 32.3 RDW 17.8 H Plt Count 243 Seg Neutrophils % 77.2 Lymphocytes % 10.6 L Monocytes % 9.9 Eosinophils % 0.1 Basophils % 2.2 H Absolute Neutrophils 15.3 H Absolute Lymphocytes 2.1 Absolute Monocytes 2.0 H Absolute Eosinophils 0.0 Absolute Basophils 0.4 H Carbonic Acid 1.38 H HCO3/H2CO3 Ratio 20:1 ABG pH 7.41 ABG pCO2 45.9 H ABG pO2 109.3 H ABG HCO3 28.3 H ABG O2 Saturation 98.0 ABG Base Excess 3.2 FiO2 36% Sodium 141.2 Potassium 5.1 H D Chloride 103 Carbon Dioxide 26 Anion Gap 12 BUN 37 H Creatinine 1.08 Est GFR ( Amer) > 60 Est GFR (Non-Af Amer) 50 L Glucose 224 H Calcium 9.1 Impressions: Head CT 09/25/16 17:42 IMPRESSION: MILD CHRONIC CHANGES OF ATROPHY AND MICROVASCULAR ISCHEMIA. NO ACUTE PROCESS. Chest X-Ray 09/25/16 18:19 IMPRESSION: NO ACUTE RADIOGRAPHIC FINDING IN THE CHEST. Head MRI 09/25/16 19:44 IMPRESSION: Negative for acute or sub-acute infarction.Age-related MICROVASCULAR ISCHEMIC CHANGE. Cervical Spine CT 09/26/16 00:00 IMPRESSION: Multilevel significant foraminal narrowing as above Thoracic Spine CT 09/26/16 00:00 IMPRESSION: Osteoporosis with multiple chronic appearing mid and lower thoracic compression deformities Radiotherapy treatment markers in the right upper lobe and left upper lobe with 1.5 cm left upper lobe nodule. Assessment & Plan - Diagnosis (1) Sepsis Qualifiers: Sepsis type: sepsis due to unspecified organism Qualified Code(s): A41.9 - Sepsis, unspecified organism Is this a current diagnosis for this admission?: YesPlan: most likly from urine on levaquin pt have allery to pcn but no issue with rocephine will chage cefepim for ggram neg coverage no s/o of any menigitis (2) Shortness of breath Is this a current diagnosis for this admission?: YesPlan: With chronic COPD become continues to nebulizer treatments (3) Back pain Qualifiers: Back pain location: back pain in unspecified location Is this a current diagnosis for this admission?: YesPlan: need pain mx consult for compression fx (4) Headache Qualifiers: Headache type: unspecified Is this a current diagnosis for this admission?: YesPlan: Patient CT head and MRI of the head is negative and clinical exams no other neurological signs and symptoms is not this most likely a musculoskeletal and tension type of the headache. (5) Pneumonia Qualifiers: Pneumonia type: due to unspecified organism Lung location: unspecified part of lung Is this a current diagnosis for this admission?: YesPlan: Continues to IV antibiotic (6) COPD (chronic obstructive pulmonary disease) Qualifiers: Chronic bronchitis type: unspecified Is this a current diagnosis for this admission?: YesPlan: Continues to current medications (7) Hypertension Qualifiers: Hypertension type: unspecified secondary hypertension Qualified Code (s): I15.9 - Secondary hypertension, unspecified; I15 - Secondary hypertension Is this a current diagnosis for this admission?: YesPlan: Currently running low possible underlying sepsis will hold all blood pressure medications (8) Lung cancer Qualifiers: Lung location: unspecified part of lung Is this a current diagnosis for this admission?: YesPlan: Currently stable (9) Acute renal failure Qualifiers: Acute renal failure type: unspecified Qualified Code(s): N17.9 - Acute kidney failure, unspecified Is this a current diagnosis for this admission?: YesPlan: stable - Time Time Spent with patient: 15-24 minutes Medications reviewed and adjusted accordingly: Yes Anticipated discharge: Other Within: Other - Inpatient Certification Medical Necessity: Need For IV Fluids, Need for IV Antibiotics Post Hospital Care: D/C [facility] Documentation - Plan Summary Plan Summary: cont curr med
[2016-09-27] MEDS: ERTAPENEM SODIUM 1 GM in NORMAL SALINE 50 ML IV SCH (15:01)
--- NOTE | 2016-09-27 15:41 | RADIOLOGY REPORT (SQ) ---
EXAM DESCRIPTION: CHEST SINGLE VIEW COMPLETED DATE/TIME: 09/27/2016 2:50 pm REASON FOR STUDY: sob COMPARISON: 09/25/2016 EXAM PARAMETERS: NUMBER OF VIEWS: One view. TECHNIQUE: Single frontal radiographic view of the chest acquired. RADIATION DOSE: NA LIMITATIONS: None. FINDINGS: LUNGS AND PLEURA: No opacities, masses or pneumothorax. No pleural effusion. MEDIASTINUM AND HILAR STRUCTURES: No masses. Contour normal. HEART AND VASCULAR STRUCTURES: Heart normal in size. Normal vasculature. BONES: No acute findings. HARDWARE: None in the chest. OTHER: No other significant finding. IMPRESSION: NO ACUTE RADIOGRAPHIC FINDING IN THE CHEST. TECHNICAL DOCUMENTATION: JOB ID: [id number]
[2016-09-27] MEDS: LEVOFLOXACIN 250 MG/D5W RTU 250 MG/50 ML RTUPB IV SCH (17:53)
[2016-09-27] MEDS: VANCOMYCIN HCL 1,000 MG in DEXTROSE 5%-WATER 250 ML IV SCH (21:11)
[2016-09-27] MEDS: ATORVASTATIN CALCIUM 10 MG TABLET PO SCH (21:12)
[2016-09-28] MEDS: IPRATROPIUM/ALBUTEROL 0.5-2.5 MG/3 ML AMPUL NEB SCH ×4 (02:10→20:50)
[2016-09-28 05:30] LABS: ANION GAP 7 (5-19); BLOOD UREA NITROGEN 24 mg/dL (7-20); CALCIUM 8.9 mg/dL (8.4-10.2); CARBON DIOXIDE 30 mmol/L (22-30); CHLORIDE 105 mmol/L (98-107); CREATININE RESULT 0.91 mg/dL (0.52-1.25); GLUCOSE 83 mg/dL (75-110); POTASSIUM 4.4 mmol/L (3.6-5.0); SODIUM 142.3 mmol/L (137-145)
[2016-09-28 05:36] LABS: HEMATOCRIT 31.4 % (36.0-47.0); HEMOGLOBIN 9.8 g/dL (12.0-15.5); MEAN CORPUSCULAR HGB CONC 31.2 g/dL (32.0-36.0); MEAN CORPUSCULAR VOLUME 90 fl (80-97); RED CELL DISTRIBUTION WIDTH 17.5 % (11.5-14.0); WHITE BLOOD COUNT 14.9 10^3/uL (4.0-10.5)
[2016-09-28] MEDS: OXYCODONE HCL IR 5 MG TABLET PO PRN ×4 (05:39→23:52)
[2016-09-28] MEDS: OXYCODONE-ACETAMINOPHEN 5-325 MG TABLET PO PRN ×3 (05:39→17:52)
[2016-09-28] MEDS: PREGABALIN 75 MG CAPSULE PO SCH ×3 (05:39→21:31)
[2016-09-28 06:12] LABS: BASOPHILS % (MANUAL) 0 % (0-2); EOSINOPHILS % (MANUAL) 2 % (0-6); LYMPHOCYTES % (MANUAL) 21 % (13-45); TOTAL CELLS COUNTED 100
[2016-09-28 06:15] LABS: ANISOCYTOSIS 1+; OVALOCYTES 1+; POIKILOCYTOSIS 1+; TOXIC GRANULATION 1+
[2016-09-28] MEDS ORDERED: ONDANSETRON HCL INJ/PF 4 MG/2 ML SDV IV PRN (07:52)
[2016-09-28] MEDS: CLONAZEPAM 1 MG TABLET PO SCH ×2 (10:16→21:31)
[2016-09-28] MEDS: CETIRIZINE 5 MG TABLET PO SCH (10:16)
[2016-09-28] MEDS: BUDESONIDE/FORMOTEROL 160-4.5 MCG 60 PUFF/6 GM MDI IH SCH ×2 (10:16→21:31)
[2016-09-28] MEDS: FAMOTIDINE 20 MG TABLET PO SCH ×2 (10:16→21:32)
[2016-09-28] MEDS: CITALOPRAM HYDROBROMIDE 20 MG TABLET PO SCH (10:16)
--- NOTE | 2016-09-28 10:19 | RADIOLOGY REPORT (SQ) ---
EXAM DESCRIPTION: PICC INSERTION; FLUORO/CV PLACEMENT; U/S GUIDE FOR VASCULAR ACCESS COMPLETED DATE/TIME: 09/28/2016 9:32 am REASON FOR STUDY: correction abx's; INTERMEDIATE IV ABX; INTERMEDIATE ABX COMPARISON: None. FLUOROSCOPY TIME: 25 seconds. 1 images saved to PACS. TECHNIQUE: Fluoroscopic and ultrasound guided PICC placement. LIMITATIONS: None. PROCEDURE: After written consent and assessment were obtained, the patient was brought into the fluo roscopy room and place supine on the table. Ultrasound was used on the patient's left arm for PICC a ccess. The left arm was prepped and draped in a sterile fashion along with the ultrasound probe. The entry site was anesthetized with 1% lidocaine. A 21 gauge 7 cm needle was advanced through the skin a nd into the left basilic vein under live ultrasound guidance. An ultrasound image was saved to PACS confirming access site. A .018 guide wire was then inserted through the needle and into the venous s ystem. The needle was the removed and an 11 blade scalpel was used to make a 1cm skin incision. A 5 fr peel-away sheath was advanced over the wire and into the venous system. A measurement was then mad e using the existing wire and live fluoroscopic guidance. The wire was then removed and the trimmed. The PICC was advanced through the peel-away sheath and into the venous system. The peel-away sheath w as removed and the catheter was adhered to the patients arm with a stat lock. The catheter was then a spirated and flushed and a sterile bandage was placed over the access site. A fluoroscopic spot imag e was saved to PACS confirming the catheter tip within the superior vena cava. IMPRESSION: SUCCESSFUL PLACEMENT OF A 5 FR DUAL LUMEN 41 CM PICC IN THE LEFT BASILIC VEIN. COMMENT: Patient medication list reviewed: Yes- Quality ID# 130:Eligible professional attests to doc umenting in the medical record they obtained, updated, or reviewed the patient's current medications. . Quality ID 145: Final reports for procedures using fluoroscopy that document radiation exposure milvia brynn, or exposure time and number of fluorographic images (if radiation exposure indices are not avail able) Quality ID #76: The patient was prepped and draped using maximum sterile barrier technique including cap, mask, sterile gown, sterile gloves, a large sterile sheet, hand hygiene, and 2% Chlorhexidine fo r cutaneous antisepsis. When ultrasound is used, sterile ultrasound techniques are followed requiring sterile gel and sterile probes. TECHNICAL DOCUMENTATION: JOB ID: [id number] [employer]- All Rights Reserved
[2016-09-28] MEDS: NORMAL SALINE 10 ML SDV (SCHEDULED) IV SCH ×2 (11:50→21:32)
[2016-09-28] MEDS: ERTAPENEM SODIUM 1 GM in NORMAL SALINE 50 ML IV SCH (14:58)
[2016-09-28] MEDS: LEVOFLOXACIN 250 MG/D5W RTU 250 MG/50 ML RTUPB IV SCH (18:36)
--- NOTE | 2016-09-28 19:46 | PDOC PROGRESS REPORT ---
Subjective Progress Note for:: 09/28/16 Subjective:: She was admitted over the weekend because of sepsis due to UTI and pneumonia, the urine culture grew Proteus sensitive to ertapenem. It was felt that she could have meningitis when she arrived in the ER because of a headache, the headache is responsive to pain medication. When I saw the patient on the floor there is no evidence of meningitis, she was empirically started on vancomycin, this was discontinued, MRI brain was done there is no evidence of any acute pathology. Physical Exam Vital Signs: Temp Pulse Resp BP Pulse Ox 97.6 F 99 16 131/68 H 95 09/28/16 14:59 09/28/16 14:59 09/28/16 14:59 09/28/16 14:59 09/28/16 14:59 Intake & Output 09/27/16 09/28/16 09/29/16 06:59 06:59 06:59 Intake Total 3345 1550 Output Total 2535 3100 Balance 810 -1550 Weight 61.9 kg 62 kg Head exam: PRESENT: atraumatic, normocephalic Eye exam: PRESENT: PERRLA Mouth exam: PRESENT: moist, tongue midline Neck exam: PRESENT: other - supple Respiratory exam: PRESENT: clear to auscultation marilynn Cardiovascular exam: PRESENT: RRR, +S1, +S2 Vascular exam: PRESENT: normal capillary refill GI/Abdominal exam: PRESENT: normal bowel sounds, soft Rectal exam: PRESENT: deferred Neurological exam: PRESENT: alert. ABSENT: motor sensory deficit Psychiatric exam: PRESENT: appropriate affect, normal mood Skin exam: PRESENT: dry, intact, warm Results Laboratory Results: 09/28/16 04:49 09/28/16 04:49 09/28/16 09/28/16 04:49 04:49 WBC 14.9 H RBC 3.50 L Hgb 9.8 L Hct 31.4 L MCV 90 MCH 28.0 MCHC 31.2 L RDW 17.5 H Plt Count 226 Seg Neutrophils % Not Reportable Lymphocytes % Not Reportable Monocytes % Not Reportable Eosinophils % Not Reportable Basophils % Not Reportable Absolute Neutrophils Not Reportable Absolute Lymphocytes Not Reportable Absolute Monocytes Not Reportable Absolute Eosinophils Not Reportable Absolute Basophils Not Reportable Sodium 142.3 Potassium 4.4 Chloride 105 Carbon Dioxide 30 Anion Gap 7 BUN 24 H Creatinine 0.91 Est GFR ( Amer) > 60 Est GFR (Non-Af Amer) > 60 Glucose 83 Calcium 8.9 Impressions: Head CT 09/25/16 17:42 IMPRESSION: MILD CHRONIC CHANGES OF ATROPHY AND MICROVASCULAR ISCHEMIA. NO ACUTE PROCESS. Head MRI 09/25/16 19:44 IMPRESSION: Negative for acute or sub-acute infarction.Age-related MICROVASCULAR ISCHEMIC CHANGE. Cervical Spine CT 09/26/16 00:00 IMPRESSION: Multilevel significant foraminal narrowing as above Thoracic Spine CT 09/26/16 00:00 IMPRESSION: Osteoporosis with multiple chronic appearing mid and lower thoracic compression deformities Radiotherapy treatment markers in the right upper lobe and left upper lobe with 1.5 cm left upper lobe nodule. Chest X-Ray 09/27/16 00:00 IMPRESSION: NO ACUTE RADIOGRAPHIC FINDING IN THE CHEST. Guidance Fluoroscopy 09/28/16 00:00 IMPRESSION: SUCCESSFUL PLACEMENT OF A 5 FR DUAL LUMEN 41 CM PICC IN THE LEFT BASILIC VEIN. Interventional Vascular Procedure 09/28/16 00:00 IMPRESSION: SUCCESSFUL PLACEMENT OF A 5 FR DUAL LUMEN 41 CM PICC IN THE LEFT BASILIC VEIN. PICC Line Insertion 09/28/16 00:00 IMPRESSION: SUCCESSFUL PLACEMENT OF A 5 FR DUAL LUMEN 41 CM PICC IN THE LEFT BASILIC VEIN. Assessment & Plan - Diagnosis (1) Urinary tract infection due to Proteus Is this a current diagnosis for this admission?: YesPlan: Continue intravenous ertapenem (2) COPD (chronic obstructive pulmonary disease) Qualifiers: Chronic bronchitis type: unspecified Is this a current diagnosis for this admission?: Yes (3) Lung cancer Qualifiers: Lung location: unspecified part of lung Is this a current diagnosis for this admission?: Yes
[2016-09-28] MEDS: ATORVASTATIN CALCIUM 10 MG TABLET PO SCH (21:31)
[2016-09-29] MEDS: OXYCODONE-ACETAMINOPHEN 5-325 MG TABLET PO PRN ×3 (00:42→20:19)
[2016-09-29] MEDS: IPRATROPIUM/ALBUTEROL 0.5-2.5 MG/3 ML AMPUL NEB SCH ×4 (02:05→20:36)
[2016-09-29 04:37] LABS: ANION GAP 9 (5-19); BLOOD UREA NITROGEN 19 mg/dL (7-20); CALCIUM 8.9 mg/dL (8.4-10.2); CARBON DIOXIDE 29 mmol/L (22-30); CHLORIDE 101 mmol/L (98-107); CREATININE RESULT 0.85 mg/dL (0.52-1.25); GLUCOSE 85 mg/dL (75-110); SODIUM 138.9 mmol/L (137-145)
[2016-09-29] MEDS: PREGABALIN 75 MG CAPSULE PO SCH ×3 (05:49→21:20)
[2016-09-29] MEDS: OXYCODONE HCL IR 5 MG TABLET PO PRN ×3 (06:18→20:18)
[2016-09-29] MEDS: FAMOTIDINE 20 MG TABLET PO SCH ×2 (09:30→21:20)
[2016-09-29] MEDS: CLONAZEPAM 1 MG TABLET PO SCH ×2 (09:30→21:20)
[2016-09-29] MEDS: CETIRIZINE 5 MG TABLET PO SCH (09:31)
[2016-09-29] MEDS: CITALOPRAM HYDROBROMIDE 20 MG TABLET PO SCH (09:31)
[2016-09-29] MEDS: NORMAL SALINE 10 ML SDV (SCHEDULED) IV SCH ×2 (09:31→21:10)
[2016-09-29] MEDS: BUDESONIDE/FORMOTEROL 160-4.5 MCG 60 PUFF/6 GM MDI IH SCH ×2 (09:35→21:21)
[2016-09-29] MEDS: ERTAPENEM SODIUM 1 GM in NORMAL SALINE 50 ML IV SCH (15:08)
--- NOTE | 2016-09-29 19:49 | PDOC PROGRESS REPORT ---
Subjective Progress Note for:: 09/29/16 Subjective:: She was admitted over the weekend because of sepsis due to UTI and pneumonia, the urine culture grew Proteus sensitive to ertapenem. It was felt that she could have meningitis when she arrived in the ER because of a headache, the headache is responsive to pain medication. When I saw the patient on the floor there is no evidence of meningitis, she was empirically started on vancomycin, this was discontinued, MRI brain was done there is no evidence of any acute pathology. Physical Exam Vital Signs: Temp Pulse Resp BP Pulse Ox 98.3 F 103 H 22 H 125/50 L 98 09/29/16 16:24 09/29/16 16:24 09/29/16 16:24 09/29/16 16:24 09/29/16 16:38 Intake & Output 09/28/16 09/29/16 09/30/16 06:59 06:59 06:59 Intake Total 1550 966 652 Output Total 3100 2650 700 Balance -1550 -1684 -48 Weight 62 kg 62.5 kg General appearance: PRESENT: no acute distress Eye exam: PRESENT: PERRLA Respiratory exam: PRESENT: clear to auscultation marilynn Cardiovascular exam: PRESENT: +S1, +S2 Neurological exam: PRESENT: alert Results Laboratory Results: 09/28/16 04:49 09/29/16 04:09 09/29/16 04:09 Sodium 138.9 Potassium 4.0 Chloride 101 Carbon Dioxide 29 Anion Gap 9 BUN 19 Creatinine 0.85 Est GFR ( Amer) > 60 Est GFR (Non-Af Amer) > 60 Glucose 85 Calcium 8.9 Impressions: Head CT 09/25/16 17:42 IMPRESSION: MILD CHRONIC CHANGES OF ATROPHY AND MICROVASCULAR ISCHEMIA. NO ACUTE PROCESS. Head MRI 09/25/16 19:44 IMPRESSION: Negative for acute or sub-acute infarction.Age-related MICROVASCULAR ISCHEMIC CHANGE. Cervical Spine CT 09/26/16 00:00 IMPRESSION: Multilevel significant foraminal narrowing as above Thoracic Spine CT 09/26/16 00:00 IMPRESSION: Osteoporosis with multiple chronic appearing mid and lower thoracic compression deformities Radiotherapy treatment markers in the right upper lobe and left upper lobe with 1.5 cm left upper lobe nodule. Chest X-Ray 09/27/16 00:00 IMPRESSION: NO ACUTE RADIOGRAPHIC FINDING IN THE CHEST. Guidance Fluoroscopy 09/28/16 00:00 IMPRESSION: SUCCESSFUL PLACEMENT OF A 5 FR DUAL LUMEN 41 CM PICC IN THE LEFT BASILIC VEIN. Interventional Vascular Procedure 09/28/16 00:00 IMPRESSION: SUCCESSFUL PLACEMENT OF A 5 FR DUAL LUMEN 41 CM PICC IN THE LEFT BASILIC VEIN. PICC Line Insertion 09/28/16 00:00 IMPRESSION: SUCCESSFUL PLACEMENT OF A 5 FR DUAL LUMEN 41 CM PICC IN THE LEFT BASILIC VEIN. Assessment & Plan - Diagnosis (1) Urinary tract infection due to Proteus Is this a current diagnosis for this admission?: Yes (2) COPD (chronic obstructive pulmonary disease) Qualifiers: Chronic bronchitis type: unspecified Is this a current diagnosis for this admission?: Yes (3) Lung cancer Qualifiers: Lung location: unspecified part of lung Is this a current diagnosis for this admission?: Yes
[2016-09-29] MEDS: ATORVASTATIN CALCIUM 10 MG TABLET PO SCH (21:20)
[2016-09-30] MEDS: IPRATROPIUM/ALBUTEROL 0.5-2.5 MG/3 ML AMPUL NEB SCH ×4 (02:20→19:54)
[2016-09-30] MEDS: PREGABALIN 75 MG CAPSULE PO SCH ×3 (05:12→21:03)
[2016-09-30 05:36] LABS: ANION GAP 9 (5-19); BLOOD UREA NITROGEN 18 mg/dL (7-20); CALCIUM 8.9 mg/dL (8.4-10.2); CARBON DIOXIDE 30 mmol/L (22-30); CHLORIDE 100 mmol/L (98-107); CREATININE RESULT 0.77 mg/dL (0.52-1.25); GLUCOSE 80 mg/dL (75-110); POTASSIUM 3.9 mmol/L (3.6-5.0); SODIUM 138.9 mmol/L (137-145)
[2016-09-30] MEDS: CLONAZEPAM 1 MG TABLET PO SCH ×2 (09:23→21:03)
[2016-09-30] MEDS: CETIRIZINE 5 MG TABLET PO SCH (09:23)
[2016-09-30] MEDS: OXYCODONE HCL IR 5 MG TABLET PO PRN (09:24)
[2016-09-30] MEDS: CITALOPRAM HYDROBROMIDE 20 MG TABLET PO SCH (09:24)
[2016-09-30] MEDS: OXYCODONE-ACETAMINOPHEN 5-325 MG TABLET PO PRN (09:24)
[2016-09-30] MEDS: FAMOTIDINE 20 MG TABLET PO SCH ×2 (09:24→21:03)
[2016-09-30] MEDS: BUDESONIDE/FORMOTEROL 160-4.5 MCG 60 PUFF/6 GM MDI IH SCH ×2 (09:25→21:06)
[2016-09-30] MEDS: NORMAL SALINE 10 ML SDV (SCHEDULED) IV SCH ×2 (09:33→21:03)
[2016-09-30] MEDS: ERTAPENEM SODIUM 1 GM in NORMAL SALINE 50 ML IV SCH (15:01)
--- NOTE | 2016-09-30 17:08 | PDOC PROGRESS REPORT ---
Subjective Progress Note for:: 09/30/16 Subjective:: She was admitted over the weekend because of sepsis due to UTI and pneumonia, the urine culture grew Proteus sensitive to ertapenem. It was felt that she could have meningitis when she arrived in the ER because of a headache, the headache is responsive to pain medication. When I saw the patient on the floor there is no evidence of meningitis, she was empirically started on vancomycin, this was discontinued, MRI brain was done there is no evidence of any acute pathology. Physical Exam Vital Signs: Temp Pulse Resp BP Pulse Ox 98.0 F 98 22 H 105/73 96 09/30/16 08:00 09/30/16 14:00 09/30/16 13:50 09/30/16 11:31 09/30/16 13:50 Intake & Output 09/29/16 09/30/16 10/01/16 06:59 06:59 06:59 Intake Total 1066 652 Output Total 2950 1175 Balance -1884 -523 Weight 62.5 kg 67 kg General appearance: PRESENT: mild distress Eye exam: PRESENT: PERRLA Respiratory exam: PRESENT: wheezes Cardiovascular exam: PRESENT: +S1, +S2 GI/Abdominal exam: PRESENT: soft Neurological exam: PRESENT: alert Results Laboratory Results: 09/28/16 04:49 09/30/16 04:06 09/30/16 04:06 Sodium 138.9 Potassium 3.9 Chloride 100 Carbon Dioxide 30 Anion Gap 9 BUN 18 Creatinine 0.77 Est GFR ( Amer) > 60 Est GFR (Non-Af Amer) > 60 Glucose 80 Calcium 8.9 Impressions: Head CT 09/25/16 17:42 IMPRESSION: MILD CHRONIC CHANGES OF ATROPHY AND MICROVASCULAR ISCHEMIA. NO ACUTE PROCESS. Head MRI 09/25/16 19:44 IMPRESSION: Negative for acute or sub-acute infarction.Age-related MICROVASCULAR ISCHEMIC CHANGE. Cervical Spine CT 09/26/16 00:00 IMPRESSION: Multilevel significant foraminal narrowing as above Thoracic Spine CT 09/26/16 00:00 IMPRESSION: Osteoporosis with multiple chronic appearing mid and lower thoracic compression deformities Radiotherapy treatment markers in the right upper lobe and left upper lobe with 1.5 cm left upper lobe nodule. Chest X-Ray 09/27/16 00:00 IMPRESSION: NO ACUTE RADIOGRAPHIC FINDING IN THE CHEST. Guidance Fluoroscopy 09/28/16 00:00 IMPRESSION: SUCCESSFUL PLACEMENT OF A 5 FR DUAL LUMEN 41 CM PICC IN THE LEFT BASILIC VEIN. Interventional Vascular Procedure 09/28/16 00:00 IMPRESSION: SUCCESSFUL PLACEMENT OF A 5 FR DUAL LUMEN 41 CM PICC IN THE LEFT BASILIC VEIN. PICC Line Insertion 09/28/16 00:00 IMPRESSION: SUCCESSFUL PLACEMENT OF A 5 FR DUAL LUMEN 41 CM PICC IN THE LEFT BASILIC VEIN. Assessment & Plan - Diagnosis (1) Urinary tract infection due to Proteus Is this a current diagnosis for this admission?: Yes (2) COPD (chronic obstructive pulmonary disease) Qualifiers: Chronic bronchitis type: unspecified Is this a current diagnosis for this admission?: Yes (3) Lung cancer Qualifiers: Lung location: unspecified part of lung Is this a current diagnosis for this admission?: Yes - Plan Summary Plan Summary: Continue present treatment
[2016-09-30] MEDS: ATORVASTATIN CALCIUM 10 MG TABLET PO SCH (21:03)
[2016-10-01] MEDS: IPRATROPIUM/ALBUTEROL 0.5-2.5 MG/3 ML AMPUL NEB SCH ×4 (02:08→19:52)
[2016-10-01] MEDS: NORMAL SALINE 10 ML SDV (AFTER EACH USE) IV PRN (04:33)
[2016-10-01] MEDS: PREGABALIN 75 MG CAPSULE PO SCH ×3 (05:07→21:24)
[2016-10-01] MEDS: CLONAZEPAM 1 MG TABLET PO SCH ×2 (11:01→21:24)
[2016-10-01] MEDS: CETIRIZINE 5 MG TABLET PO SCH (11:01)
[2016-10-01] MEDS: BUDESONIDE/FORMOTEROL 160-4.5 MCG 60 PUFF/6 GM MDI IH SCH ×2 (11:01→21:25)
[2016-10-01] MEDS: CITALOPRAM HYDROBROMIDE 20 MG TABLET PO SCH (11:02)
[2016-10-01] MEDS: NORMAL SALINE 10 ML SDV (SCHEDULED) IV SCH ×2 (11:02→21:25)
[2016-10-01] MEDS: FAMOTIDINE 20 MG TABLET PO SCH ×2 (11:02→21:25)
[2016-10-01] MEDS: ERTAPENEM SODIUM 1 GM in NORMAL SALINE 50 ML IV SCH (14:50)
[2016-10-01] MEDS: OXYCODONE-ACETAMINOPHEN 5-325 MG TABLET PO PRN (16:58)
[2016-10-01] MEDS: OXYCODONE HCL IR 5 MG TABLET PO PRN (16:59)
--- NOTE | 2016-10-01 18:51 | PDOC PROGRESS REPORT ---
Subjective Progress Note for:: 10/01/16 Subjective:: Patient's condition is about the same. Physical Exam Vital Signs: Temp Pulse Resp BP Pulse Ox 98.9 F 99 19 126/76 H 96 10/01/16 15:19 10/01/16 15:19 10/01/16 15:19 10/01/16 15:19 10/01/16 15:19 Intake & Output 09/30/16 10/01/16 10/02/16 06:59 06:59 06:59 Intake Total 652 870 Output Total 1175 2200 Balance -523 -1330 Weight 67 kg General appearance: PRESENT: no acute distress Eye exam: PRESENT: PERRLA Respiratory exam: PRESENT: clear to auscultation marilynn Cardiovascular exam: PRESENT: +S1, +S2 GI/Abdominal exam: PRESENT: soft Results Laboratory Results: 09/28/16 04:49 09/30/16 04:06 Impressions: Head CT 09/25/16 17:42 IMPRESSION: MILD CHRONIC CHANGES OF ATROPHY AND MICROVASCULAR ISCHEMIA. NO ACUTE PROCESS. Head MRI 09/25/16 19:44 IMPRESSION: Negative for acute or sub-acute infarction.Age-related MICROVASCULAR ISCHEMIC CHANGE. Cervical Spine CT 09/26/16 00:00 IMPRESSION: Multilevel significant foraminal narrowing as above Thoracic Spine CT 09/26/16 00:00 IMPRESSION: Osteoporosis with multiple chronic appearing mid and lower thoracic compression deformities Radiotherapy treatment markers in the right upper lobe and left upper lobe with 1.5 cm left upper lobe nodule. Chest X-Ray 09/27/16 00:00 IMPRESSION: NO ACUTE RADIOGRAPHIC FINDING IN THE CHEST. Guidance Fluoroscopy 09/28/16 00:00 IMPRESSION: SUCCESSFUL PLACEMENT OF A 5 FR DUAL LUMEN 41 CM PICC IN THE LEFT BASILIC VEIN. Interventional Vascular Procedure 09/28/16 00:00 IMPRESSION: SUCCESSFUL PLACEMENT OF A 5 FR DUAL LUMEN 41 CM PICC IN THE LEFT BASILIC VEIN. PICC Line Insertion 09/28/16 00:00 IMPRESSION: SUCCESSFUL PLACEMENT OF A 5 FR DUAL LUMEN 41 CM PICC IN THE LEFT BASILIC VEIN. Assessment & Plan - Diagnosis (1) Urinary tract infection due to Proteus Is this a current diagnosis for this admission?: Yes (2) COPD (chronic obstructive pulmonary disease) Qualifiers: Chronic bronchitis type: unspecified Is this a current diagnosis for this admission?: Yes (3) Lung cancer Qualifiers: Lung location: unspecified part of lung Is this a current diagnosis for this admission?: Yes
[2016-10-01] MEDS: ATORVASTATIN CALCIUM 10 MG TABLET PO SCH (21:24)
[2016-10-02] MEDS: IPRATROPIUM/ALBUTEROL 0.5-2.5 MG/3 ML AMPUL NEB SCH ×4 (02:01→19:57)
[2016-10-02] MEDS: PREGABALIN 75 MG CAPSULE PO SCH ×3 (05:06→22:59)
[2016-10-02] MEDS: FAMOTIDINE 20 MG TABLET PO SCH ×2 (11:13→22:59)
[2016-10-02] MEDS: OXYCODONE-ACETAMINOPHEN 5-325 MG TABLET PO PRN ×2 (11:13→19:21)
[2016-10-02] MEDS: CETIRIZINE 5 MG TABLET PO SCH (11:14)
[2016-10-02] MEDS: CITALOPRAM HYDROBROMIDE 20 MG TABLET PO SCH (11:14)
[2016-10-02] MEDS: OXYCODONE HCL IR 5 MG TABLET PO PRN ×2 (11:14→19:22)
[2016-10-02] MEDS: NORMAL SALINE 10 ML SDV (SCHEDULED) IV SCH ×2 (11:15→23:01)
[2016-10-02] MEDS: BUDESONIDE/FORMOTEROL 160-4.5 MCG 60 PUFF/6 GM MDI IH SCH ×2 (11:15→23:12)
[2016-10-02] MEDS: CLONAZEPAM 1 MG TABLET PO SCH ×2 (11:15→22:57)
[2016-10-02] MEDS: ERTAPENEM SODIUM 1 GM in NORMAL SALINE 50 ML IV SCH (14:53)
--- NOTE | 2016-10-02 18:38 | PDOC PROGRESS REPORT ---
Subjective Progress Note for:: 10/02/16 Subjective:: Patient overall condition remains poor, she be discharged back to long term in the morning Physical Exam Vital Signs: Temp Pulse Resp BP Pulse Ox 98.8 F 80 16 113/64 98 10/02/16 11:15 10/02/16 13:54 10/02/16 13:54 10/02/16 11:15 10/02/16 11:15 Intake & Output 10/01/16 10/02/16 10/03/16 06:59 06:59 06:59 Intake Total 870 1000 236 Output Total 2200 650 100 Balance -1330 350 136 General appearance: PRESENT: no acute distress Eye exam: PRESENT: PERRLA Respiratory exam: PRESENT: clear to auscultation marilynn Cardiovascular exam: PRESENT: +S1, +S2 GI/Abdominal exam: PRESENT: soft Neurological exam: PRESENT: alert, CN II-XII grossly intact Results Laboratory Results: 09/28/16 04:49 09/30/16 04:06 Impressions: Head CT 09/25/16 17:42 IMPRESSION: MILD CHRONIC CHANGES OF ATROPHY AND MICROVASCULAR ISCHEMIA. NO ACUTE PROCESS. Head MRI 09/25/16 19:44 IMPRESSION: Negative for acute or sub-acute infarction.Age-related MICROVASCULAR ISCHEMIC CHANGE. Cervical Spine CT 09/26/16 00:00 IMPRESSION: Multilevel significant foraminal narrowing as above Thoracic Spine CT 09/26/16 00:00 IMPRESSION: Osteoporosis with multiple chronic appearing mid and lower thoracic compression deformities Radiotherapy treatment markers in the right upper lobe and left upper lobe with 1.5 cm left upper lobe nodule. Chest X-Ray 09/27/16 00:00 IMPRESSION: NO ACUTE RADIOGRAPHIC FINDING IN THE CHEST. Guidance Fluoroscopy 09/28/16 00:00 IMPRESSION: SUCCESSFUL PLACEMENT OF A 5 FR DUAL LUMEN 41 CM PICC IN THE LEFT BASILIC VEIN. Interventional Vascular Procedure 09/28/16 00:00 IMPRESSION: SUCCESSFUL PLACEMENT OF A 5 FR DUAL LUMEN 41 CM PICC IN THE LEFT BASILIC VEIN. PICC Line Insertion 09/28/16 00:00 IMPRESSION: SUCCESSFUL PLACEMENT OF A 5 FR DUAL LUMEN 41 CM PICC IN THE LEFT BASILIC VEIN. Assessment & Plan - Diagnosis (1) Urinary tract infection due to Proteus Is this a current diagnosis for this admission?: Yes (2) COPD (chronic obstructive pulmonary disease) Qualifiers: Chronic bronchitis type: unspecified Is this a current diagnosis for this admission?: Yes (3) Lung cancer Qualifiers: Lung location: unspecified part of lung Is this a current diagnosis for this admission?: Yes
[2016-10-02] MEDS: ATORVASTATIN CALCIUM 10 MG TABLET PO SCH (22:58)
[2016-10-02] MEDS: NORMAL SALINE 10 ML SDV (AFTER EACH USE) IV PRN (23:00)
[2016-10-03] MEDS: IPRATROPIUM/ALBUTEROL 0.5-2.5 MG/3 ML AMPUL NEB SCH ×3 (02:12→14:04)
[2016-10-03] MEDS: PREGABALIN 75 MG CAPSULE PO SCH ×2 (06:18→14:57)
[2016-10-03] MEDS: OXYCODONE HCL IR 5 MG TABLET PO PRN (07:43)
[2016-10-03] MEDS: OXYCODONE-ACETAMINOPHEN 5-325 MG TABLET PO PRN (07:43)
[2016-10-03] MEDS: CITALOPRAM HYDROBROMIDE 20 MG TABLET PO SCH (11:56)
[2016-10-03] MEDS: CETIRIZINE 5 MG TABLET PO SCH (11:56)
[2016-10-03] MEDS: CLONAZEPAM 1 MG TABLET PO SCH (11:56)
[2016-10-03] MEDS: BUDESONIDE/FORMOTEROL 160-4.5 MCG 60 PUFF/6 GM MDI IH SCH (11:56)
[2016-10-03] MEDS: NORMAL SALINE 10 ML SDV (SCHEDULED) IV SCH (11:57)
[2016-10-03] MEDS: FAMOTIDINE 20 MG TABLET PO SCH (11:57)
--- NOTE | 2016-10-03 13:07 | PDOC TRANSFER SUMMARY ---
General - Admit/Disc Date/PCP Admission Date/Primary Care Provider: 09/25/16 23:14 SURY CRUZ MD Discharge Date: 10/03/16 - Discharge Diagnosis (1) Urinary tract infection due to Proteus Is this a current diagnosis for this admission?: Yes (2) COPD (chronic obstructive pulmonary disease) Is this a current diagnosis for this admission?: Yes (3) Lung cancer Is this a current diagnosis for this admission?: Yes - Additional Information Resuscitation Status: Full Code Home Medications: RX: Albuterol Sulfate [Ventolin Hfa] 2 puff IH Q4HP PRN 09/26/16 RX: Amlodipine Besylate [Norvasc 5 mg Tablet] 5 mg PO DAILY 09/26/16 RX: Atorvastatin Calcium [Lipitor 10 mg Tablet] 10 mg PO QHS 09/26/16 RX: Budesonide/Formoterol Fumarate [Symbicort HFA 160-4.5 mcg Inhaler 6 gm] 2 puff IH Q12 09/26/16 RX: Citalopram Hydrobromide [Celexa 20 mg Tablet] 20 mg PO DAILY 09/26/16 RX: Clonazepam [Klonopin] 0.5 mg PO Q12 09/26/16 RX: Clonidine HCl 0.1 mg PO Q12 09/26/16 RX: Ergocalciferol (Vitamin D2) [Vitamin D2] 50,000 unit PO Q14D 09/26/16 RX: Ipratropium/Albuterol Sulfate [Duoneb 3 ml Ampul] 3 ml NEB RTQ6HP PRN RX: Levocetirizine Dihydrochloride [Xyzal] 5 mg PO QHS 09/26/16 RX: Losartan Potassium [Cozaar 100 mg Tablet] 100 mg PO DAILY 09/26/16 RX: Mirtazapine [Remeron] 7.5 mg PO QHS 09/26/16 RX: Omeprazole 40 mg PO DAILY 09/26/16 RX: Oxycodone HCl/Acetaminophen [Percocet 10-325 mg Tablet] 1 tab PO Q6HP PRN RX: Pregabalin [Lyrica 75 mg Capsule] 75 mg PO Q8 09/26/16 RX: Tiotropium [place] [Spiriva Handihaler 5 Cap/Kit (18 Mcg/Cap)] 1 cap IH DAILY 09/26/16 History of Present Illness Admission Date/PCP: 09/25/16 23:14 SURY CRUZ MD History of Present Illness: GEREMIAS LOPEZ is a 71 year old female This is a 71-year-old female with a history of the COPD lung cancer sepsis and chronic kidney disease present in the emergency department 2 days ago with a productive cough and shortness of the breath patient at that time was noticed some elevated WBC. Patient's present today with the headache and the back pain mostly on the thoracic spine denied any fever denied any blurry vision. Patient initial workup including the CT of the head and MRI of the head was negative for any acute finding. Patient does not have a normal fever but patient's white count was elevated but patients currently on the steroid. Patient no ongoing chronic COPD for several hospital admissions. The ER physicians tried to get the lumbar puncture which is very low suspicious for the any meningitis with the clinical pictures but unable to get it because of a lot of arthritis. Patients color with the Rocephin vancomycin and Levaquin antibiotic when I saw the patient's Patient is alert awake oriented 3. Patient's denied any headache but mostly complains of back pain which is described in the cervical spine and thoracic spine area. Patients denied any chest pain patient still complains of shortness of the breath on and off Patients recently admitting in the hospital on 08/16/16 for the pneumonia and septicemia and patient's was treated with the IV antibiotic Levaquin and vancomycin at the time. 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 She had a lot of pain especially in the back, she has compression fracture of the vertebrae affecting the lumbar spine. Prognosis is very poor in this patient Physical Exam Vital Signs: Temp Pulse Resp BP Pulse Ox 99.2 F 97 20 112/81 94 10/03/16 11:18 10/03/16 11:18 10/03/16 11:18 10/03/16 11:18 10/03/16 11:18 Intake & Output 10/02/16 10/03/16 10/04/16 06:59 06:59 06:59 Intake Total 1000 1256 237 Output Total 650 1050 200 Balance 350 206 37 Weight 67 kg General appearance: PRESENT: no acute distress Eye exam: PRESENT: PERRLA Respiratory exam: PRESENT: clear to auscultation marilynn Cardiovascular exam: PRESENT: +S1, +S2 GI/Abdominal exam: PRESENT: soft Neurological exam: PRESENT: alert Results Laboratory Results: 09/28/16 04:49 09/30/16 04:06 Impressions: Head CT 09/25/16 17:42 IMPRESSION: MILD CHRONIC CHANGES OF ATROPHY AND MICROVASCULAR ISCHEMIA. NO ACUTE PROCESS. Head MRI 09/25/16 19:44 IMPRESSION: Negative for acute or sub-acute infarction.Age-related MICROVASCULAR ISCHEMIC CHANGE. Cervical Spine CT 09/26/16 00:00 IMPRESSION: Multilevel significant foraminal narrowing as above Thoracic Spine CT 09/26/16 00:00 IMPRESSION: Osteoporosis with multiple chronic appearing mid and lower thoracic compression deformities Radiotherapy treatment markers in the right upper lobe and left upper lobe with 1.5 cm left upper lobe nodule. Chest X-Ray 09/27/16 00:00 IMPRESSION: NO ACUTE RADIOGRAPHIC FINDING IN THE CHEST. Guidance Fluoroscopy 09/28/16 00:00 IMPRESSION: SUCCESSFUL PLACEMENT OF A 5 FR DUAL LUMEN 41 CM PICC IN THE LEFT BASILIC VEIN. Interventional Vascular Procedure 09/28/16 00:00 IMPRESSION: SUCCESSFUL PLACEMENT OF A 5 FR DUAL LUMEN 41 CM PICC IN THE LEFT BASILIC VEIN. PICC Line Insertion 09/28/16 00:00
[2016-10-03 14:15] LABS: ABSOLUTE BASOPHILS # (AUTO) 0.1 10^3/uL (0.0-0.2); ABSOLUTE EOSINOPHILS # (AUTO) 0.4 10^3/uL (0.0-0.6); ABSOLUTE LYMPHOCYTES (AUTO) 2.1 10^3/uL (0.5-4.7); ABSOLUTE MONOCYTES (AUTO) 1.3 10^3/uL (0.1-1.4); ABSOLUTE NEUT (AUTO) 7.8 10^3/uL (1.7-8.2); BASOPHILS % (AUTO) 0.6 % (0-2); EOSINOPHILS % (AUTO) 3.1 % (0-6); HEMATOCRIT 24.8 % (36.0-47.0); HGB HCT DIFFERENCE -1.7; LYMPHOCYTES % (AUTO) 17.7 % (13-45); MEAN CORPUSCULAR HEMOGLOBIN 27.8 pg (27.0-33.4); MEAN CORPUSCULAR HGB CONC 31.1 g/dL (32.0-36.0); MEAN CORPUSCULAR VOLUME 89 fl (80-97); MONOCYTES % (AUTO) 11.1 % (3-13); RED BLOOD COUNT 2.77 10^6/uL (3.72-5.28); RED CELL DISTRIBUTION WIDTH 16.7 % (11.5-14.0); SEGMENTED NEUTROPHILS % (AUTO) 67.5 % (42-78); WHITE BLOOD COUNT 11.6 10^3/uL (4.0-10.5)
[2016-10-03 14:27] LABS: ALANINE AMINOTRANSFERASE 26 U/L (9-52); ALBUMIN 2.8 g/dL (3.5-5.0); ALKALINE PHOSPHATASE 93 U/L (38-126); ANION GAP 7 (5-19); ASPARTATE AMINO TRANSFERASE 15 U/L (14-36); BILIRUBIN,DIRECT 0.3 mg/dL (0.0-0.4); BILIRUBIN,TOTAL 0.5 mg/dL (0.2-1.3); BLOOD UREA NITROGEN 16 mg/dL (7-20); CALCIUM 8.9 mg/dL (8.4-10.2); CARBON DIOXIDE 30 mmol/L (22-30); CHLORIDE 100 mmol/L (98-107); CREATININE RESULT 0.77 mg/dL (0.52-1.25); GLUCOSE 95 mg/dL (75-110); SODIUM 137.2 mmol/L (137-145); TOTAL PROTEIN 5.8 g/dL (6.3-8.2)
[2016-10-03 14:29] LABS: HEMOGLOBIN 7.7 g/dL (12.0-15.5)
[2016-10-03] MEDS: ERTAPENEM SODIUM 1 GM in NORMAL SALINE 50 ML IV SCH (14:57)
[2016-10-03 15:20] LABS: ABSOLUTE BASOPHILS # (AUTO) 0.1 10^3/uL (0.0-0.2); ABSOLUTE EOSINOPHILS # (AUTO) 0.5 10^3/uL (0.0-0.6); ABSOLUTE MONOCYTES (AUTO) 1.7 10^3/uL (0.1-1.4); ABSOLUTE NEUT (AUTO) 9.5 10^3/uL (1.7-8.2); BASOPHILS % (AUTO) 0.5 % (0-2); EOSINOPHILS % (AUTO) 3.2 % (0-6); HEMATOCRIT 29.3 % (36.0-47.0); HEMOGLOBIN 9.4 g/dL (12.0-15.5); HGB HCT DIFFERENCE -1.1; LYMPHOCYTES % (AUTO) 20.5 % (13-45); MEAN CORPUSCULAR HEMOGLOBIN 28.7 pg (27.0-33.4); MEAN CORPUSCULAR HGB CONC 32.3 g/dL (32.0-36.0); MEAN CORPUSCULAR VOLUME 89 fl (80-97); MONOCYTES % (AUTO) 11.8 % (3-13); RED BLOOD COUNT 3.29 10^6/uL (3.72-5.28); WHITE BLOOD COUNT 14.8 10^3/uL (4.0-10.5)
[2016-10-03 17:24] VITALS: BP 126/78
== END 2016-10-03 18:08 | DRG 872 ==
LOC: ER 16:50 → EH 23:14 → UNDOADMIN 23:46 → EH 23:46 → 3N 09-26 01:10
PROVIDERS: ADMIT Internal Medicine; ATTEND Internal Medicine
PROC: 02HV33Z Insertion of Infusion Device into Superior Vena Cava, Percutaneous Approach (ICD-10-PCS; principal; 2016-09-28)
PROC: B518ZZA Fluoroscopy of Superior Vena Cava, Guidance (ICD-10-PCS; 2016-09-28)
PROC: B548ZZA Ultrasonography of Superior Vena Cava, Guidance (ICD-10-PCS; 2016-09-28)
DX: A41.9 Sepsis, unspecified organism (principal); N39.0 Urinary tract infection, site not specified; N17.9 Acute kidney failure, unspecified; C34.90 Malignant neoplasm of unspecified part of unspecified bronchus or lung; M80.88XA Other osteoporosis with current pathological fracture, vertebra(e), initial encounter for fracture; R51 Headache; J44.9 Chronic obstructive pulmonary disease, unspecified; N18.9 Chronic kidney disease, unspecified; M54.9 Dorsalgia, unspecified; I15.9 Secondary hypertension, unspecified; K21.9 Gastro-esophageal reflux disease without esophagitis; B96.4 Proteus (mirabilis) (morganii) as the cause of diseases classified elsewhere; Z79.51 Long term (current) use of inhaled steroids; Z79.899 Other long term (current) drug therapy; Z88.0 Allergy status to penicillin; Z86.14 Personal history of Methicillin resistant Staphylococcus aureus infection; Z87.891 Personal history of nicotine dependence
CPT/HCPCS: 36415; 36569; 70450; 70553; 71010; 72125; 72128; 76937; 77001; 80048; 80053; 81001; 82140; 82803; 85025; 85610; 87040; 87086; 87088; 87186; 93005; 93010; 94640; 94660; 96365; 96375; 96376; 99285; A9577; G8978-GP; G8979-GP; J0610; J0692; J0696; J1335; J1642; J1956; J2270; J2405; J2920; J3370; J3490; J7030; J7060; J7620

== ENCOUNTER 2016-12-24 15:27 | Emergency (ER) | payer MEDICARE, MEDICAID ==
[2016-12-24] MEDS ORDERED: MORPHINE SULFATE 10 MG/ML INJ IV ONE (16:33)
--- NOTE | 2016-12-24 16:34 | ER Document Report ---
ED Neck/Back Problem - General Chief Complaint: Back Pain Stated Complaint: LOW BACK PAIN Time Seen by Provider: 12/24/16 16:16 Mode of Arrival: Stretcher Information source: Patient TRAVEL OUTSIDE OF THE [place] 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, and felt pain in her low back, which has been worsening over the past week, patient does have a history of chronic back issues in the past, she denies any bowel or bladder dysfunction, no nausea or vomiting, no fever chills , no urinary symptoms - Related Data Allergies/Adverse Reactions: Penicillins Allergy (Verified 09/14/16 21:23) Past Medical History - General Information source: Patient - Social History Smoking Status: Never Smoker Chew tobacco use (# tins/day): No Frequency of alcohol use: None Drug Abuse: None Family History: None, Reviewed & Not Pertinent, Arthritis - Past Medical History Cardiac Medical History: Reports: Hx Hypertension Pulmonary Medical History: Reports: Hx Bronchitis, Hx COPD, Hx Pneumonia, Hx Respiratory Failure Endocrine Medical History: Denies: Hx Diabetes Mellitus Type 1, Hx Diabetes Mellitus Type 2 Malignancy Medical History: Reports: Hx Lung Cancer GI Medical History: Reports: Hx Gastroesophageal Reflux Disease Musculoskeltal Medical History: Reports Hx Arthritis Psychiatric Medical History: Reports: Hx Depression Past Surgical History: Reports: Hx Appendectomy, Hx Cholecystectomy, Hx Hysterectomy, Hx Orthopedic Surgery Review of Systems - Review of Systems Constitutional: No symptoms reported EENT: No symptoms reported Cardiovascular: No symptoms reported Respiratory: No symptoms reported Gastrointestinal: No symptoms reported Genitourinary: No symptoms reported Female Genitourinary: No symptoms reported Musculoskeletal: Back pain Skin: No symptoms reported Hematologic/Lymphatic: No symptoms reported Neurological/Psychological: No symptoms reported -: Yes All other systems reviewed and negative Physical Exam - Vital signs Vitals: Resp BP Pulse Ox 12 109/57 L 98 12/24/16 15:48 12/24/16 15:48 12/24/16 15:48 Interpretation: Normal - General General appearance: Appears well, Alert - HEENT Head: Normocephalic, Atraumatic Eyes: Normal Pupils: PERRL - Respiratory Respiratory status: No respiratory distress Chest status: Nontender Breath sounds: Normal Chest palpation: Normal - Cardiovascular Rhythm: Regular Heart sounds: Normal auscultation Murmur: No - Abdominal Inspection: Normal Distension: No distension Bowel sounds: Normal Tenderness: Nontender Organomegaly: No organomegaly - Back Back: Normal, Tender - tender to palpate in the lumbar spine, midline as well as in the paraspinal musculature, no step-off or deformity - Extremities General upper extremity: Nontender, Normal ROM, Normal temperature, Other - Diffuse ecchymosis General lower extremity: Normal inspection, Nontender, Normal color, Normal ROM , Normal temperature, Normal weight bearing. No: Catina's sign - Neurological Neuro grossly intact: Yes Cognition: Normal Orientation: AAOx4 Juan David Coma Scale Eye Opening: Spontaneous Juan David Coma Scale Verbal: Oriented Juan David Coma Scale Motor: Obeys Commands Juan David Coma Scale Total: 15 Speech: Normal Motor strength normal: LUE, RUE, LLE, RLE Sensory: Normal - Psychological Associated symptoms: Normal affect, Normal mood - Skin Skin Temperature: Warm Skin Moisture: Dry Skin Color: Normal Course - Re-evaluation Re-evalutation: 12/24/16 19:29 Lab and imaging findings were discussed with patient at bedside which are fairly unremarkable, she is noted to have mild leukocytosis, however no urinary tract infection, denies any cough, cold or congestion, no abdominal pain, symptoms consistent with likely lumbar strain, she will be discharged with prescription for a muscle relaxer as she already takes pain medication at the group home, advised to apply warm packs, follow-up with her doctor in 1-2 days or return if symptoms worsen, patient acknowledges understanding and agreement with this plan - Vital Signs Vital signs: Temp Pulse Resp BP Pulse Ox 12 109/57 L 98 12/24/16 15:48 12/24/16 15:48 12/24/16 15:48 - Laboratory Result Diagrams: 12/24/16 17:43 12/24/16 17:43 Laboratory results interpreted by me: 12/24/16 12/24/16 12/24/16 17:43 17:43 18:30 WBC 13.9 H RBC 3.60 L Hgb 10.4 L Hct 31.6 L RDW 20.3 H Seg Neuts % (Manual) 92 H Lymphocytes % (Manual) 1 L Abs Neuts (Manual) 13.2 H Abs Lymphs (Manual) 0.1 L Sodium 135.0 L Potassium 5.3 H BUN 37 H Glucose 218 H Urine Glucose (UA) 50 H - Diagnostic Test Radiology reviewed: Image reviewed, Reports reviewed Discharge - Discharge Clinical Impression: Low back pain Qualifiers: Chronicity: acute Back pain laterality: midline Sciatica presence: without sciatica Qualified Code(s): M54.5 - Low back pain Condition: Stable Disposition: HOME, SELF-CARE Instructions: Ice Packs ([facility]), Low Back Pain ([facility]), Muscle Strain ([facility]), Warm Packs ([facility]) Additional Instructions: Follow up with your primary care provider in one to 2 days. Return to the emergency room immediately if symptoms worsen or any additional concerns. Prescriptions: Methocarbamol [Robaxin 500 mg Tablet] 500 mg PO BID #10 tablet Referrals: SURY CRUZ MD [Primary Care Provider] - Follow up as needed
--- NOTE | 2016-12-24 17:34 | RADIOLOGY REPORT (SQ) ---
EXAM DESCRIPTION: L SPINE WHOLE COMPLETED DATE/TIME: 12/24/2016 5:25 pm REASON FOR STUDY: pain COMPARISON: None. NUMBER OF VIEWS: Five views including obliques. TECHNIQUE: AP, lateral, oblique, and sacral radiographic images acquired of the lumbar spine. LIMITATIONS: None. FINDINGS: MINERALIZATION: There is diffuse osteopenia. SEGMENTATION: There is a rudimentary disc noted at S1-S2. ALIGNMENT: There is slight scoliosis with concavity toward the right. VERTEBRAE: There chronic compression deformities at L3 and L4. There is slight wedging of L2 along t he superior endplate as well as T12 and T11. Age of these are indeterminate. There are no old films available for comparison. DISCS: Multilevel disc space narrowing with osteophytes. POSTERIOR ELEMENTS: Pedicles and facets are intact. No pars defect or posterior arch defects. Facet arthropathy is present. HARDWARE: None in the spine. PARASPINAL SOFT TISSUES: Normal. PELVIS: Intact as visualized. No fractures or worrisome bone lesions. SI joints intact. OTHER: No other significant finding. IMPRESSION: 1. Diffuse osteopenia. There is multilevel spondylosis. 2. Prior kyphoplasties at L3 and L4. There is slight wedging of the superior endplate at T11-T12 an d L2. Age of these are indeterminate. TECHNICAL DOCUMENTATION: JOB ID: [id number] [employer]- All Rights Reserved
[2016-12-24 17:58] LABS: HEMATOCRIT 31.6 % (36.0-47.0); HEMOGLOBIN 10.4 g/dL (12.0-15.5); HGB HCT DIFFERENCE -0.4; MEAN CORPUSCULAR HEMOGLOBIN 28.8 pg (27.0-33.4); MEAN CORPUSCULAR HGB CONC 32.8 g/dL (32.0-36.0); MEAN CORPUSCULAR VOLUME 88 fl (80-97); RED CELL DISTRIBUTION WIDTH 20.3 % (11.5-14.0); WHITE BLOOD COUNT 13.9 10^3/uL (4.0-10.5)
[2016-12-24 18:10] LABS: ANION GAP 9 (5-19); BLOOD UREA NITROGEN 37 mg/dL (7-20); CALCIUM 8.4 mg/dL (8.4-10.2); CARBON DIOXIDE 25 mmol/L (22-30); CHLORIDE 101 mmol/L (98-107); CREATININE RESULT 0.91 mg/dL (0.52-1.25); GLUCOSE 218 mg/dL (75-110); POTASSIUM 5.3 mmol/L (3.6-5.0)
[2016-12-24 18:24] LABS: BAND NEUTROPHILS % (MANUAL) 3 % (3-5); BASOPHILS % (MANUAL) 0 % (0-2); EOSINOPHILS % (MANUAL) 0 % (0-6); LYMPHOCYTES % (MANUAL) 1 % (13-45); TOTAL CELLS COUNTED 100
[2016-12-24 18:27] LABS: ANISOCYTOSIS 2+; HYPOCHROMASIA 1+; OVALOCYTES SLIGHT; POIKILOCYTOSIS 1+; SCHISTOCYTES 1+; TOXIC GRANULATION 1+
[2016-12-24 19:19] LABS: APPEARANCE,URINE CLEAR; BILIRUBIN,URINE NEGATIVE (NEGATIVE); GLUCOSE, URINE 50 mg/dL (NEGATIVE); KETONES,URINE NEGATIVE (NEGATIVE); LEUKOCYTE ESTERASE,URINE NEGATIVE (NEGATIVE); NITRITE,URINE NEGATIVE (NEGATIVE); PROTEIN,URINE NEGATIVE (NEGATIVE); URINE SPECIFIC GRAVITY 1.008; UROBILINOGEN,URINE NEGATIVE mg/dL (<2.0)
[2016-12-24 20:39] VITALS: BP 130/80
== END 2016-12-24 20:35 | disposition home or self-care (01) ==
LOC: ER 15:27
DX: M54.5 Low back pain (principal); I10 Essential (primary) hypertension; J44.9 Chronic obstructive pulmonary disease, unspecified; Z88.0 Allergy status to penicillin; Z85.118 Personal history of other malignant neoplasm of bronchus and lung; Z90.49 Acquired absence of other specified parts of digestive tract; Z90.710 Acquired absence of both cervix and uterus
CPT/HCPCS: 99285; 96374; 36415; 87086; 85025; 80048; 81001; 72110; J2270